=== PATIENT | male | born 1960 | race Caucasian/White ===

== ENCOUNTER 2017-09-18 21:20 | Observation (INO) | payer BC ==
[2017-09-18] MEDS ORDERED: Albuterol/Ipratropium 3.0-0.5 MG/3 ML Neb Soln NEB ONE (21:33)
[2017-09-18] MEDS ORDERED: methylPREDNISolone Sodium Succinate 125 MG/2 ML SDV IVPUSH ONE (21:33)
[2017-09-18] MEDS ORDERED: Albuterol/Ipratropium 3.0-0.5 MG/3 ML Neb Soln ONE (21:34)
[2017-09-18] MEDS ORDERED: Morphine 2 MG/ML Syringe IVPUSH PRN (22:17)
[2017-09-18] MEDS ORDERED: Codeine/guaiFENesin 100-10 MG/5 ML Syrup 5 ML Cup PO PRN (22:17)
[2017-09-18] MEDS ORDERED: Furosemide 20 MG/2 ML VIAL IVPUSH ONE (22:21)
--- NOTE | 2017-09-18 23:29 | ER ---
DATE SEEN: 09/18/2017 TIME SEEN: 2130 hours. REASON FOR VISIT: Cough. HISTORY OF PRESENT ILLNESS: This is a 56-year-old male with COPD. He presents with shortness of breath, difficulty breathing, wheezing, and cough. Symptoms have progressively got worse over the last week, was admitted at the end of last month at [facility], and discharged after a few days. Complains of no fever or chest pain. PAST MEDICAL HISTORY: COPD, CAD, tobacco abuse, quit smoking like a month ago. CURRENT MEDICATIONS: We have no record of his current medications. ALLERGIES: No known allergies. PHYSICAL EXAMINATION: VITAL SIGNS: He is in mild respiratory distress with a normal blood pressure. He is afebrile and oxygenation is 97% on 2 L, but was 79% when he came in without oxygen. ENT: Negative. NECK: Use of accessory muscles noted. CARDIOVASCULAR: Normal. RESPIRATORY: Coarse crepitations, wheezing, rhonchi bilaterally. Poor air exchange. EXTREMITIES: Some mild pedal edema bilaterally. IMPRESSION: Chronic obstructive pulmonary disease exacerbation. PLAN: We will admit for observation, Solu-Medrol NEL, Hector and Brandie. /[id number] TEENA/KIM
[2017-09-18] MEDS ORDERED: methylPREDNISolone Sodium Succinate 125 MG/2 ML SDV ONE (23:54)
[2017-09-19] MEDS: Levofloxacin/Dextrose 5%-Water 500 MG in Premix Bag 1 BAG IV SCH ×2 (00:05→22:41)
[2017-09-19] MEDS: Sodium Chloride 0.9% 10 ML Syringe FLUSH PRN ×4 (00:05→23:41)
[2017-09-19] MEDS ORDERED: Albuterol/Ipratropium 3.0-0.5 MG/3 ML Neb Soln NEB PRN (03:55)
[2017-09-19] MEDS: Albuterol/Ipratropium 3.0-0.5 MG/3 ML Neb Soln NEB SCH ×4 (07:22→21:06)
--- NOTE | 2017-09-19 08:22 | PCM.HP ---
H&P History of Present Illness - General Date of Service: 09/19/17 Admit Problem/Dx: Admission Diagnosis/Problem Admission Diagnosis/Problem COPD with acute lower respiratory infection Source of Information: Patient, Old Records History Limitations: Reports: No Limitations - History of Present Illness Initial Comments - Free Text/Narative: Saman is a 56-year-old male admitted through the emergency room yesterday. He presented with shortness of breath cough wheezing. He has a history of COPD, pulmonary fibrosis and recent pneumonia infection admitted over [facility] in [facility]. He has a history of tobacco abuse and quit around the same time. His cough wheezing and shortness of breath of gotten worse over several days he denies fever chills nausea of any chest pain nausea or vomiting. He's tried albuterol inhalers at home with no real improvement of his symptoms. He has a history of 1 graft cardiac bypass several years ago, atrial fibrillation, sick sinus syndrome status post pacemaker placement, and is on chronic warfarin therapy. Is also survival of non-Hodgkin's lymphoma. Tonight his symptoms have somewhat improved. - Related Data Allergies/Adverse Reactions: Allergies Allergy/AdvReac Type Severity Reaction Status Date / Time No Known Allergies Allergy Verified 09/18/17 21:37 Home Medications: Home Meds Albuterol Sulfate [Ventolin Hfa] 2 puff INH Q4H PRN 09/19/17 [History] Levothyroxine [Sythroid] 1 tab PO DAILY 09/19/17 [History] Lisinopril 1 tab PO DAILY 09/19/17 [History] Metoprolol Succinate 1 tab PO DAILY 09/19/17 [History] Simvastatin [Zocor] 1 tab PO ACDINNER 09/19/17 [History] Warfarin Sodium [Jantoven] 1 tab PO TUFR 09/19/17 [History] Warfarin [Coumadin] 2 tab PO SUMOWETHSA 09/19/17 [History] amLODIPine [Norvasc] 1 tab PO DAILY 09/19/17 [History] buPROPion [Wellbutrin] 1 tab PO BID 09/19/17 [History] Past Medical History HEENT History: Reports: Other (See Below) Other HEENT History: Wears glasses. 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 Endocrine/Metabolic History: Reports: Other (See Below) Other Endocrine/Metabolic History: Takes Thyroid medication. Oncologic (Cancer) History: Reports: Non-Hodgkin's Lymphoma, Thyroid - Infectious Disease History Infectious Disease History: Reports: Chicken Pox, Shingles - Past Surgical History Respiratory Surgical History: Reports: None Social & Family History - Tobacco Use Smoking Status *Q: Former Smoker Years of Tobacco use: 40 Packs/Tins Daily: 1 Used Tobacco, but Quit: No - Caffeine Use Caffeine Use: Reports: Soda - Recreational Drug Use Recreational Drug Use: No H&P Review of Systems - Review of Systems: Review Of Systems: ROS reveals no pertinent complaints other than HPI. Exam - Exam Exam: See Below - Vital Signs Vital Signs: Last Vital Signs Temp 98 F 09/19/17 06:15 Pulse 107 H 09/19/17 07:35 Resp 18 09/19/17 06:15 BP 108/73 09/19/17 06:15 Pulse Ox 92 L 09/19/17 07:25 Weight: 91.716 kg - Exam Quality Assessment: Supplemental Oxygen General: Alert, Oriented, 4 HEENT: PERRLA, Hearing Intact, Mucosa Moist & [place], Nares Patent, Normal Nasal Septum, Posterior Pharynx Clear, Conjunctiva Clear, EOMI, EACs Clear, TMs Clear Neck: Supple, Trachea Midline, 2 Lungs: Decreased Breath Sounds, Rhonchi Cardiovascular: Regular Rate, Regular Rhythm GI/Abdominal Exam: Normal Bowel Sounds, Soft, Non-Tender, No Organomegaly, No Distention, No Abnormal Bruit, No Mass, Pelvis Stable (Male) Exam: Deferred Rectal (Males) Exam: Deferred Back Exam: Normal Inspection, Full Range of Motion, NT Extremities: Normal Inspection, Normal Range of Motion, Non-Tender, No Pedal Edema, Normal Capillary Refill Skin: Warm, Dry, Intact Neurological: Cranial Nerves Intact, Reflexes Equal Bilateral Neuro Extensive - Mental Status: Alert, Oriented x3, Normal Mood/Affect, Normal Cognition Neuro Extensive - Motor, Sensory, Reflexes: CN II-XII Intact, Normal Gait, Normal Reflexes Psychiatric: Alert, Normal Affect, Normal Mood - Patient Data Lab Results Last 24 hrs: Laboratory Results - last 24 hr 09/19/17 09/19/17 Range/Units 06:30 06:30 WBC 16.8 H (4.5-12.0) X10-3/uL RBC 5.04 (4.30-5.75) x10(6)uL Hgb 15.5 (11.5-15.5) g/dL Hct 48.4 (30.0-51.3) % MCV 95.9 (80-96) fL MCH 30.8 (27.7-33.6) pg MCHC 32.1 L (32.2-35.4) g/dL RDW 13.7 (11.5-15.5) % Plt Count 471 H (125-369) X10(3)uL Sodium 139 (135-145) mmol/L Potassium 4.4 (3.5-5.3) mmol/L Chloride 100 (100-110) mmol/L Carbon Dioxide 36 H (21-32) mmol/L BUN 14 (7-18) mg/dL Creatinine 1.0 (0.70-1.30) mg/dL Est Cr Clr Drug Dosing 90.53 mL/min Estimated GFR (MDRD) > 60 (>60) BUN/Creatinine Ratio 14.0 (9-20) Glucose 150 H (80-116) mg/dL Calcium 8.9 (8.6-10.2) mg/dL Result Diagrams: 09/19/17 06:30 09/19/17 06:30 Imaging Impressions Last 24 hrs: cxr-copd EKG INTERPRETATION EKG Date: 09/18/17 Rhythm: Other (paced) *Q Meaningful Use (ADM) - VTE *Q VTE Criteria *Q: - Stroke *Q Stroke Criteria *Q: - AMI *Q AMI Criteria *Q: - Problem List (1) COPD (chronic obstructive pulmonary disease) SNOMED Code(s): 13968192 ICD Code: J44.9 - CHRONIC OBSTRUCTIVE PULMONARY DISEASE, UNSPECIFIED Status : Acute Current Visit: Yes Qualifiers: COPD type: COPD with acute exacerbation Qualified Code(s): J44.1 - Chronic obstructive pulmonary disease with (acute) exacerbation (2) CAD (coronary artery disease) SNOMED Code(s): 82344075 ICD Code: I25.10 - ATHSCL HEART DISEASE OF [place] CORONARY ARTERY W/O ANG PCTRS Status: Acute Current Visit: Yes Qualifiers: Coronary Disease-Associated Artery/Lesion type: bypass graft [place] vs. transplanted heart: [place] heart Associated angina: without angina Qualified Code(s): I25.810 - Atherosclerosis of coronary artery bypass graft(s) without angina pectoris (3) HTN (hypertension) SNOMED Code(s): 54006296 ICD Code: I10 - ESSENTIAL (PRIMARY) HYPERTENSION Status: Acute Current Visit: Yes Qualifiers: Hypertension type: essential hypertension Qualified Code(s): I10 - Essential (primary) hypertension (4) Chronic anticoagulation SNOMED Code(s): 180468536 ICD Code: Z79.01 - ELECTRICAL ACCESSORIES I ASSEMBLER (CURRENT) USE OF ANTICOAGULANTS Status: Chronic Current Visit: Yes (5) Afib SNOMED Code(s): 84584359 ICD Code: I48.91 - UNSPECIFIED ATRIAL FIBRILLATION Status: Chronic Current Visit: Yes Qualifiers: Atrial fibrillation type: chronic Qualified Code(s): I48.2 - Chronic atrial fibrillation (6) H/O aortic valve repair SNOMED Code(s): 807760839368130, 779607464171350 ICD Code: Z98.890 - OTHER SPECIFIED POSTPROCEDURAL STATES Status: Chronic Current Visit: Yes (7) HLD (hyperlipidemia) SNOMED Code(s): 33302225 ICD Code: E78.5 - HYPERLIPIDEMIA, UNSPECIFIED Status: Chronic Current Visit: Yes Qualifiers: Hyperlipidemia type: unspecified Qualified Code(s): E78.5 - Hyperlipidemia , unspecified (8) Hypothyroid SNOMED Code(s): 52474940 ICD Code: E03.9 - HYPOTHYROIDISM, UNSPECIFIED Status: Chronic Current Visit: Yes Qualifiers: Hypothyroidism type: unspecified Qualified Code(s): E03.9 - Hypothyroidism , unspecified (9) History of pacemaker SNOMED Code(s): 097439082 ICD Code: Z95.0 - PRESENCE OF CARDIAC PACEMAKER Status: Chronic Current Visit: Yes (10) H/O non-Hodgkin's lymphoma SNOMED Code(s): 594197807 ICD Code: Z85.72 - PERSONAL HISTORY OF NON-HODGKIN LYMPHOMAS Status: Chronic Current Visit: Yes (11) Dysthymia SNOMED Code(s): 18198396 ICD Code: F34.1 - DYSTHYMIC DISORDER Status: Acute Current Visit: Yes (12) Palliative care status SNOMED Code(s): 443071500 ICD Code: Z51.5 - ENCOUNTER FOR PALLIATIVE CARE Status: Acute Current Visit: Yes (13) H/O tobacco use, presenting hazards to health SNOMED Code(s): 4753002610456 ICD Code: Z87.891 - PERSONAL HISTORY OF NICOTINE DEPENDENCE Status: Acute Current Visit: Yes (14) H/O tobacco use, presenting hazards to health SNOMED Code(s): 8262136822021 ICD Code: Z87.891 - PERSONAL HISTORY OF NICOTINE DEPENDENCE Status: Acute Current Visit: Yes Problem List Initiated/Reviewed/Updated: Yes Orders Last 24hrs: Active Orders 24 hr Category Date Time Status Patient Status [ADT] Routine ADT 09/18/17 22:17 Active Height and Weight [RC] 06 Care 09/18/17 22:17 Active Oxygen Therapy [RC] 00,08,16 Care 09/18/17 22:17 Active RT Incentive Spirometry [RC] Q4HTX Care 09/19/17 08:16 Ordered Vital Signs [RC] 00,04,08,12,16,20 Care 09/18/17 22:17 Active BASIC METABOLIC PANEL,BMP [CHEM] AM Lab 09/20/17 05:11 Ordered CBC W/O DIFF,HEMOGRAM [HEME] AM Lab 09/20/17 05:11 Ordered Albuterol/Ipratropium [DuoNeb 3.0-0.5 MG/3 ML] Med 09/19/17 03:55 Active 3 ml NEB Q4H PRN Albuterol/Ipratropium [DuoNeb 3.0-0.5 MG/3 ML] Med 09/19/17 07:00 Active 3 ml NEB QIDRT Codeine/guaiFENesin [Robitussin AC] Med 09/18/17 22:17 Active 10 ml PO Q4H PRN Levofloxacin/Dextrose 5%-Water [Levaquin in D5W 500 MG/ Med 09/18/17 22:30 Active 100 ML] 500 mg Premix Bag 1 bag IV Q24H Morphine Med 09/18/17 22:17 Active 2 mg IVPUSH Q2H PRN methylPREDNISolone Sod Succ [Solu-MEDROL] Med 09/19/17 09:00 Active 125 mg IVPUSH Q8H Resuscitation Status Routine Resus Stat 09/18/17 22:17 Ordered Medication Orders Albuterol/Ipratropium (Duoneb 3.0-0.5 Mg/3 Ml) 3 ml NEB QIDRT [facility] Last Admin: 09/19/17 07:22 Dose: 3 ml Albuterol/Ipratropium (Duoneb 3.0-0.5 Mg/3 Ml) 3 ml NEB Q4H PRN PRN Reason: Shortness of Breath Guaifenesin/Codeine Phosphate (Robitussin Ac) 10 ml PO Q4H PRN PRN Reason: Cough Levofloxacin/Dextrose 500 mg/ (Premix) 100 mls @ 100 mls/hr IV Q24H [facility] Last Admin: 09/19/17 00:05 Dose: 100 mls/hr Methylprednisolone Sodium Succinate (Solu-Medrol) 125 mg IVPUSH Q8H BRENDA Morphine Sulfate (Morphine) 2 mg IVPUSH Q2H PRN PRN Reason: Pain (severe 7-10) Sodium Chloride (Saline Flush) 10 ml FLUSH ASDIRECTED PRN PRN Reason: Keep Vein Open Last Admin: 09/19/17 00:58 Dose: 10 ml Admin: 09/19/17 00:05 Dose: 10 ml Assessment/Plan Comment:: Reviewed his [facility] from [facility], the CT scan that was done recently and echocardiogram. Mostly consistent with emphysema and Bulae. Chest x-ray yesterday was no suggestive any different. I will continue the Levaquin today along with Solu-Medrol for 1 more day and perhaps discharge home tomorrow. I given 1 dose of Lasix that helped diuresis yesterday and this edema is significantly improved today. I will have him continue with incentive spirometry ,ambulate. Levaquin is for the COPD exacerbation and productive sputum.I did not see evidcence of pneumonia.
[2017-09-19] MEDS: amLODIPine 5 MG Tab PO SCH (09:44)
[2017-09-19] MEDS: Lisinopril 10 MG Tab PO SCH (09:45)
[2017-09-19] MEDS: methylPREDNISolone Sodium Succinate 125 MG/2 ML SDV IVPUSH SCH ×2 (09:46→16:41)
[2017-09-19] MEDS: Levothyroxine 100 MCG Tab PO SCH (09:48)
[2017-09-19] MEDS: Metoprolol Succinate 50 MG Tab.ER PO SCH (09:48)
--- NOTE | 2017-09-19 14:40 | CR ---
INDICATION: Difficulty breathing. CHEST: A portable AP upright view of the chest 09/18/2017, was compared with and , revealing the heart to likely be normal in size and shape. The aorta is calcified in the arch area slightly. Evidence of previous median sternotomy is noted with aortic valve replacement. Bipolar pacemaker leads are unchanged in position. The lungs are hyperaerated with somewhat flattened diaphragm leaves, compatible with severe COPD. A definite active infiltrate or effusion was not identified. IMPRESSION: Findings are compatible with severe COPD - correlate clinically. No definite pneumonia is identified. No CHF is seen. MTDD
[2017-09-19] MEDS ORDERED: Warfarin 4 MG Tab PO SCH (16:00)
[2017-09-19] MEDS ORDERED: Simvastatin 40 MG Tab PO SCH (18:00)
[2017-09-20] MEDS: Sodium Chloride 0.9% 10 ML Syringe FLUSH PRN ×2 (00:56→09:20)
[2017-09-20] MEDS: methylPREDNISolone Sodium Succinate 125 MG/2 ML SDV IVPUSH SCH ×2 (00:56→09:15)
[2017-09-20] MEDS: Levothyroxine 100 MCG Tab PO SCH (05:54)
[2017-09-20] MEDS: Albuterol/Ipratropium 3.0-0.5 MG/3 ML Neb Soln NEB SCH ×3 (07:06→15:04)
--- NOTE | 2017-09-20 08:28 | PCM.PN ---
- General Info Date of Service: 09/20/17 Subjective Update: Patient's cough is much better he still has some wheezing but this is improved by DuoNeb nebulization. He denies fever chest pain neither does he have any vomiting or shortness of breath. Functional Status: Reports: Pain Controlled, Tolerating Diet - Review of Systems General: Reports: No Symptoms. Denies: Fever HEENT: Reports: No Symptoms Pulmonary: Reports: Cough, Wheezing Cardiovascular: Denies: Chest Pain, Dyspnea on Exertion, Orthopnea Gastrointestinal: Reports: No Symptoms - Patient Data Vitals - Most Recent: Last Vital Signs Temp 98.0 F 09/20/17 04:00 Pulse 94 09/20/17 07:20 Resp 18 09/20/17 04:00 BP 115/62 09/20/17 04:00 Pulse Ox 93 L 09/20/17 07:20 Weight - Most Recent: 91.444 kg I&O - Last 24 Hours: Intake & Output 09/19/17 09/20/17 09/20/17 22:59 06:59 14:59 Intake Total 350 950 Output Total 300 1250 Balance 50 -300 Lab Results Last 24 Hours: Laboratory Results - last 24 hr 09/19/17 09/20/17 09/20/17 Range/Units 09:05 06:15 06:15 WBC 33.4 H* (4.5-12.0) X10-3/uL RBC 4.62 (4.30-5.75) x10(6)uL Hgb 14.8 (11.5-15.5) g/dL Hct 44.6 (30.0-51.3) % MCV 96.5 H (80-96) fL MCH 32.1 (27.7-33.6) pg MCHC 33.2 (32.2-35.4) g/dL RDW 13.5 (11.5-15.5) % Plt Count 436 H (125-369) X10(3)uL PT 14.7 H (8.7-11.1) INR 1.45 H (0.89-1.13) Sodium 138 (135-145) mmol/L Potassium 4.7 (3.5-5.3) mmol/L Chloride 101 (100-110) mmol/L Carbon Dioxide 32 (21-32) mmol/L BUN 25 H D (7-18) mg/dL Creatinine 1.0 (0.70-1.30) mg/dL Est Cr Clr Drug Dosing 90.53 mL/min Estimated GFR (MDRD) > 60 (>60) BUN/Creatinine Ratio 25.0 H (9-20) Glucose 131 H (80-116) mg/dL Calcium 8.9 (8.6-10.2) mg/dL 09/20/17 Range/Units 06:15 WBC (4.5-12.0) X10-3/uL RBC (4.30-5.75) x10(6)uL Hgb (11.5-15.5) g/dL Hct (30.0-51.3) % MCV (80-96) fL MCH (27.7-33.6) pg MCHC (32.2-35.4) g/dL RDW (11.5-15.5) % Plt Count (125-369) X10(3)uL PT 13.3 H (8.7-11.1) INR 1.31 H (0.89-1.13) Sodium (135-145) mmol/L Potassium (3.5-5.3) mmol/L Chloride (100-110) mmol/L Carbon Dioxide (21-32) mmol/L BUN (7-18) mg/dL Creatinine (0.70-1.30) mg/dL Est Cr Clr Drug Dosing mL/min Estimated GFR (MDRD) (>60) BUN/Creatinine Ratio (9-20) Glucose (80-116) mg/dL Calcium (8.6-10.2) mg/dL Med Orders - Current: Current Medications Albuterol/Ipratropium (Duoneb 3.0-0.5 Mg/3 Ml) 3 ml NEB QIDRT [facility] Last Admin: 09/20/17 07:06 Dose: 3 ml Albuterol/Ipratropium (Duoneb 3.0-0.5 Mg/3 Ml) 3 ml NEB Q4H PRN PRN Reason: Shortness of Breath Amlodipine Besylate (Norvasc) 5 mg PO DAILY [facility] Last Admin: 09/19/17 09:44 Dose: 5 mg Bupropion HCl (Wellbutrin) 75 mg PO BID [facility] Last Admin: 09/19/17 21:06 Dose: 75 mg Guaifenesin/Codeine Phosphate (Robitussin Ac) 10 ml PO Q4H PRN PRN Reason: Cough Levofloxacin/Dextrose 500 mg/ (Premix) 100 mls @ 100 mls/hr IV Q24H [facility] Last Admin: 09/19/17 22:41 Dose: 100 mls/hr Levothyroxine Sodium (Synthroid) 100 mcg PO DAILY@0600 [facility] Last Admin: 09/20/17 05:54 Dose: 100 mcg Lisinopril (Prinivil) 10 mg PO DAILY [facility] Last Admin: 09/19/17 09:45 Dose: 10 mg Methylprednisolone Sodium Succinate (Solu-Medrol) 125 mg IVPUSH Q8H [facility] Last Admin: 09/20/17 00:56 Dose: 125 mg Metoprolol Succinate (Toprol Xl) 50 mg PO DAILY [facility] Last Admin: 09/19/17 09:48 Dose: 50 mg Morphine Sulfate (Morphine) 2 mg IVPUSH Q2H PRN PRN Reason: Pain (severe 7-10) Simvastatin (Zocor) 40 mg PO 1800 [facility] Last Admin: 09/19/17 18:18 Dose: 40 mg Sodium Chloride (Saline Flush) 10 ml FLUSH ASDIRECTED PRN PRN Reason: Keep Vein Open Last Admin: 09/20/17 00:56 Dose: 10 ml Warfarin Sodium (Coumadin) 4 mg PO TUFR [facility] Last Admin: 09/19/17 16:39 Dose: 4 mg Warfarin Sodium (Coumadin) 8 mg PO SUMOWETHSA [facility] Discontinued Medications Albuterol/Ipratropium (Duoneb 3.0-0.5 Mg/3 Ml) 3 ml NEB ONETIME ONE Stop: 09/18/17 21:34 Last Admin: 09/18/17 21:35 Dose: 3 ml Albuterol/Ipratropium (Duoneb 3.0-0.5 Mg/3 Ml) Confirm Administered Dose 3 ml .ROUTE .STK-MED ONE Stop: 09/18/17 21:35 Last Admin: 09/18/17 23:50 Dose: Not Given Furosemide (Lasix) 20 mg IVPUSH ONETIME ONE Stop: 09/18/17 22:22 Last Admin: 09/19/17 00:01 Dose: 20 mg Methylprednisolone Sodium Succinate (Solu-Medrol) 125 mg IVPUSH ONETIME ONE Stop: 09/18/17 21:34 Last Admin: 09/18/17 23:58 Dose: 125 mg Methylprednisolone Sodium Succinate (Solu-Medrol) Confirm Administered Dose 125 mg .ROUTE .STK-MED ONE Stop: 09/18/17 23:55 Last Admin: 09/18/17 23:59 Dose: Not Given - Exam Quality Assessment: Supplemental Oxygen General: Alert, Oriented, Cooperative HEENT: Pupils Equal Lungs: Rhonchi, Wheezing Cardiovascular: Regular Rate GI/Abdominal Exam: Normal Bowel Sounds - Problem List & Annotations (1) COPD (chronic obstructive pulmonary disease) SNOMED Code(s): 40887709 Code(s): J44.9 - CHRONIC OBSTRUCTIVE PULMONARY DISEASE, UNSPECIFIED Status : Acute Current Visit: Yes Qualifiers: COPD type: COPD with acute exacerbation Qualified Code(s): J44.1 - Chronic obstructive pulmonary disease with (acute) exacerbation (2) CAD (coronary artery disease) SNOMED Code(s): 00725640 Code(s): I25.10 - ATHSCL HEART DISEASE OF [place] CORONARY ARTERY W/O ANG PCTRS Status: Acute Current Visit: Yes Qualifiers: Coronary Disease-Associated Artery/Lesion type: bypass graft [place] vs. transplanted heart: [place] heart Associated angina: without angina Qualified Code(s): I25.810 - Atherosclerosis of coronary artery bypass graft(s) without angina pectoris (3) HTN (hypertension) SNOMED Code(s): 75893680 Code(s): I10 - ESSENTIAL (PRIMARY) HYPERTENSION Status: Acute Current Visit: Yes Qualifiers: Hypertension type: essential hypertension Qualified Code(s): I10 - Essential (primary) hypertension (4) Chronic anticoagulation SNOMED Code(s): 583868696 Code(s): Z79.01 - HALF-WAY (CURRENT) USE OF ANTICOAGULANTS Status: Chronic Current Visit: Yes (5) Afib SNOMED Code(s): 12492970 Code(s): I48.91 - UNSPECIFIED ATRIAL FIBRILLATION Status: Chronic Current Visit: Yes Qualifiers: Atrial fibrillation type: chronic Qualified Code(s): I48.2 - Chronic atrial fibrillation (6) H/O aortic valve repair SNOMED Code(s): 942778738950668, 130703574879894 Code(s): Z98.890 - OTHER SPECIFIED POSTPROCEDURAL STATES Status: Chronic Current Visit: Yes (7) HLD (hyperlipidemia) SNOMED Code(s): 68999863 Code(s): E78.5 - HYPERLIPIDEMIA, UNSPECIFIED Status: Chronic Current Visit: Yes Qualifiers: Hyperlipidemia type: unspecified Qualified Code(s): E78.5 - Hyperlipidemia , unspecified (8) Hypothyroid SNOMED Code(s): 98273576 Code(s): E03.9 - HYPOTHYROIDISM, UNSPECIFIED Status: Chronic Current Visit: Yes Qualifiers: Hypothyroidism type: unspecified Qualified Code(s): E03.9 - Hypothyroidism , unspecified (9) History of pacemaker SNOMED Code(s): 348574415 Code(s): Z95.0 - PRESENCE OF CARDIAC PACEMAKER Status: Chronic Current Visit: Yes (10) H/O non-Hodgkin's lymphoma SNOMED Code(s): 769378680 Code(s): Z85.72 - PERSONAL HISTORY OF NON-HODGKIN LYMPHOMAS Status: Chronic Current Visit: Yes (11) Dysthymia SNOMED Code(s): 12629076 Code(s): F34.1 - DYSTHYMIC DISORDER Status: Acute Current Visit: Yes (12) Palliative care status SNOMED Code(s): 303643551 Code(s): Z51.5 - ENCOUNTER FOR PALLIATIVE CARE Status: Acute Current Visit: Yes (13) H/O tobacco use, presenting hazards to health SNOMED Code(s): 2676024198972 Code(s): Z87.891 - PERSONAL HISTORY OF NICOTINE DEPENDENCE Status: Acute Current Visit: Yes (14) H/O tobacco use, presenting hazards to health SNOMED Code(s): 4846869267852 Code(s): Z87.891 - PERSONAL HISTORY OF NICOTINE DEPENDENCE Status: Acute Current Visit: Yes - Problem List Review Problem List Initiated/Reviewed/Updated: Yes - My Orders Last 24 Hours: My Active Orders 09/19/17 08:16 RT Incentive Spirometry [RC] Q4HWA 09/19/17 09:00 Levothyroxine [Synthroid] 100 mcg PO DAILY@0600 Lisinopril [Prinivil] 10 mg PO DAILY Metoprolol Succinate [Toprol XL] 50 mg PO DAILY amLODIPine [Norvasc] 5 mg PO DAILY methylPREDNISolone Sod Succ [Solu-MEDROL] 125 mg IVPUSH Q8H 09/19/17 09:30 buPROPion [Wellbutrin] 75 mg PO BID 09/19/17 16:00 Warfarin [Coumadin] 4 mg PO TUFR 09/19/17 18:00 Simvastatin [Zocor] 40 mg PO 1800 09/20/17 09:30 Umeclidinium Brm/Vilanterol Tr [Anoro Ellipta 62.5-25 MCG] 62.5 mcg IH DAILY 09/20/17 16:00 Warfarin [Coumadin] 8 mg PO SUMOWETHSA - Plan Plan:: Patient ready to go home today. Cough and wheezing controlled. I'll send him home DuoNeb and a course of prednisone to finish 5 days. I have stopped the antibiotics. I invited him to see his physician on Monday return to the ED if any worsening symptoms. I congratulated him for quitting smoking.
[2017-09-20] MEDS: amLODIPine 5 MG Tab PO SCH (09:12)
[2017-09-20] MEDS: Lisinopril 10 MG Tab PO SCH (09:15)
[2017-09-20] MEDS: Metoprolol Succinate 50 MG Tab.ER PO SCH (09:16)
[2017-09-20] MEDS ORDERED: Umeclidinium Brm/Vilanterol Tr 62.5-25 MCG 30 Puff Inhaler IH SCH (09:30)
[2017-09-20] MEDS ORDERED: Warfarin 4 MG Tab PO SCH (16:00)
== END 2017-09-20 16:02 | disposition home or self-care (01) ==
LOC: FB.ED 21:20 → FB.MS 22:16
PROVIDERS: ADMIT Family Medicine; ATTEND Family Medicine
DX: J44.1 Chronic obstructive pulmonary disease with (acute) exacerbation (principal); I25.810 Atherosclerosis of coronary artery bypass graft(s) without angina pectoris; I10 Essential (primary) hypertension; I48.2 Chronic atrial fibrillation; E78.5 Hyperlipidemia, unspecified; E03.9 Hypothyroidism, unspecified; F34.1 Dysthymic disorder; Z95.0 Presence of cardiac pacemaker; Z79.01 Long term (current) use of anticoagulants; Z85.72 Personal history of non-Hodgkin lymphomas; Z98.890 Other specified postprocedural states; Z87.891 Personal history of nicotine dependence; Z51.5 Encounter for palliative care; Z95.2 Presence of prosthetic heart valve
CPT/HCPCS: 36415; 71010; 80048; 83880; 84484; 85025; 85027; 85610; 93005; 94150; 94640; 96365; 96366; 96375; 96376; 99285; A9270; G0378; J1940; J1956; J2930; J7050; J7620

== ENCOUNTER 2018-02-10 20:45 | Observation (INO) | payer BC ==
[2018-02-10] MEDS ORDERED: methylPREDNISolone Sodium Succinate 125 MG/2 ML SDV IVPUSH ONE (21:06)
[2018-02-10] MEDS ORDERED: Albuterol/Ipratropium 3.0-0.5 MG/3 ML Neb Soln NEB ONE (21:06)
[2018-02-10] MEDS ORDERED: Morphine 4 MG/ML Syringe IVPUSH ONE (22:28)
[2018-02-10] MEDS ORDERED: LORazepam 0.5 MG Tab PO PRN (22:33)
[2018-02-10] MEDS ORDERED: Codeine/guaiFENesin 100-10 MG/5 ML Syrup 5 ML Cup PO PRN (22:33)
[2018-02-10] MEDS ORDERED: Levofloxacin/Dextrose 5%-Water 500 MG in Premix Bag 1 BAG IV SCH (22:45)
--- NOTE | 2018-02-10 22:47 | ER ---
DATE SEEN: 02/10/2018 TIME SEEN: 2145 hours. CHIEF COMPLAINT: Cough. HISTORY OF PRESENT ILLNESS: This is a 57-year-old male with a cough since yesterday. Cough is productive of yellow sputum, associated with wheezing, tightness, which does not seem to improve with albuterol nebulizer. He has a history of COPD that is oxygen dependent at night. He also has a history of atrial fibrillation, on chronic anticoagulation; CAD; hypertension; and dysthymia. REVIEW OF SYSTEMS: No fever, headaches, or vomiting. No chest pain. MEDICATIONS: Reviewed. ALLERGIES: None. PHYSICAL EXAMINATION: GENERAL: He has mild respiratory distress. VITAL SIGNS: He is afebrile, oxygenation 89% on room air, 95% on 1 L. EARS, NOSE AND THROAT: Negative. NECK: No thyromegaly. CHEST: Diminished breath sounds markedly with occasional rhonchi posteriorly. CARDIOVASCULAR: Irregular heart rate. ABDOMEN: Soft. EXTREMITIES: No edema. LABORATORY DATA: White cell count 17.2000. Troponin less than 0.017. Chest x- ray, no acute process. EKG normal. IMPRESSION: Acute chronic obstructive pulmonary disease exacerbation. PLAN: DuoNeb x1, Solu-Medrol 125 mg once. The patient will be discharged home on prednisone 10 mg b.i.d. Advised to see PCP on Monday. Return to the ED with any worsening symptoms. /[id number] TEENA/KIM
[2018-02-10] MEDS ORDERED: Morphine 10 MG/ML Syringe IVPUSH ONE (22:51)
[2018-02-11] MEDS ORDERED: methylPREDNISolone Sodium Succinate 125 MG/2 ML SDV IVPUSH SCH (06:00)
[2018-02-11] MEDS: Sodium Chloride 0.9% 10 ML Syringe FLUSH PRN ×2 (06:09→08:39)
[2018-02-11] MEDS: Albuterol/Ipratropium 3.0-0.5 MG/3 ML Neb Soln NEB SCH ×2 (07:51→11:19)
[2018-02-11] MEDS ORDERED: Levofloxacin 500 MG Tab PO SCH (21:00)
[2018-02-12] MEDS ORDERED: predniSONE 20 MG Tab PO SCH (08:00)
--- NOTE | 2018-02-12 10:18 | HP ---
ADMISSION DATE: 02/10/2018 HISTORY OF PRESENT ILLNESS: Saman Ruiz is a 57-year-old gentleman admitted with increasing respiratory distress. Cough, cold, moderate sputum, inhalation therapy with little response, was admitted through the ER. He has been given intravenous methylprednisolone and a dose of levofloxacin. 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 He has done well in the interim. Surgery was in 2009. SOCIAL HISTORY: Quit smoking a year ago. No alcohol consumption. No illicit drug use. MEDICATIONS: Daily medications include: 1. DuoNeb q.i.d. p.r.n. 2. Amlodipine 5 mg one p.o. daily, blood pressure. 3. Budesonide/Pulmicort 2 mL q.4 hours. 4. BuSpar 5 mg one p.o. b.i.d., mood stabilizer. 5. Furosemide 40 mg one p.o. b.i.d., heart. 6. Levothyroxine 100 mcg one p.o. daily, hypothyroidism. 7. Lisinopril 10 mg one p.o. daily, blood pressure/heart. 8. Metoprolol 150 mg p.o. daily, heart rate control. 9. Sertraline 50 mg one p.o. daily, mood stabilizer. 10.Zocor 40 mg daily, hyperlipidemia. 11.Warfarin for mechanical aortic valve. ALLERGIES: No medication, environmental, or latex allergies. PAST MEDICAL HISTORY: Significant for previous coronary bypass surgery, aortic valve replacement, and pacemaker placement postsurgical for heart block in about 2009. He has also had wisdom tooth extraction. Chronic illnesses include mood disorder, hypertension, hypothyroidism, and hyperlipidemia. SOCIAL HISTORY: , 67, 4 children, 1 daughter, 3 sons. Works at [employer]. 30+ pack-year history, resolved, 2017. Nil alcohol consumption. No illicit drug use. FAMILY HISTORY: Mom of "cancer, ovarian", age 85, dad 90. One brother, one sister, both older, in good health. No diabetes or early heart disease or inheritable cancers. REVIEW OF SYSTEMS: CONSTITUTIONAL: Please see HPI. Sees well. Hears well. CHEST: Breathing has been a bit compromised. Denies chest pain. ABDOMEN: Bowels have been fine, no blood in stool. Voiding without difficulty. No blood in urine. SKIN: No new lesions, eruptions, or moles. ENDOCRINE: No excessive thirst, urination. ALLERGIC: No chronic cough, wheeze, or congestion. PSYCHIATRIC: Mood stable. OBJECTIVE: VITAL SIGNS: 96.1 kg, pulse 101, blood pressure 119/83, 20 is the respiration, and O2 saturation 94%. GENERAL: The patient was seen sitting up in the room, conversation is appropriate. HEENT: Reveal funduscopic benign. Bright TMs. Clear nasal discharge. Mouth and oropharynx clear. Fair dentition. NECK: Benign. Thyroid small. No JVD. No carotid bruits. CHEST: Clear in all lung swanson. No adventitious sounds. HEART: On auscultation, no ectopy or significant murmur. Valvular click appreciated. BREASTS: Normal male breasts. Mild gynecomastia. NECK: Excellent, no adenopathy. ABDOMEN: Benign. Sternotomy scar well healed. Drain sites well healed. No hepatomegaly. AND RECTAL: Deferred. EXTREMITIES: Well perfused. SKIN: Benign nevi. LABORATORY STUDIES: White count 17,200, hemoglobin 14.8, hematocrit 44.7, electrolytes unremarkable. Random glucose 120. Troponin was negative. BNP 511. A chest x-ray, AP, nondiagnostic. No complicating pneumonia is present. ASSESSMENT: A 57-year-old, male, presents with complicated respiratory status, chronic obstructive pulmonary disease, asthma, previous heart surgery, with troublesome cough, low-grade fever, mild respiratory distress. Has been given IV Levaquin, IV Solu-Medrol. Complementary care and well being. We will observe overnight in terms of clinical response. Discharge likely after short-term stay. /[id number] /KIM Cc: [facility].
--- NOTE | 2018-02-12 10:18 | PN ---
DATE SEEN: 02/11/2018 SUBJECTIVE: Mr. Ruiz was admitted yesterday with mild respiratory distress with complicated sputum, suspicion for fever. He was given intravenous Solu-Medrol and levofloxacin, much better today. Denies fever, chills, or sweats. Shortness of breath is improved, up and ambulating. PHYSICAL EXAMINATION: VITAL SIGNS: Stable and documented. 36.5, heart rate 106. HEENT: Speech was fluent. NECK: Benign. Thyroid small. CHEST: Better air exchange but some diffuse wheezing. HEART: Regular without ectopy or murmur, click noted. ABDOMEN: Benign. IMPRESSION: 1. Acute exacerbation of chronic obstructive pulmonary disease. 2. Asthma with respiratory infection. PLAN: Seems well. Short burst of steroids post. Upon discharge, antibiotics and therapy as indicated, follow up in one week's time, Lisa Villalpando, [facility]. /[id number] ADEEL/KIM
--- NOTE | 2018-02-12 15:19 | CR ---
INDICATION: Cough. CHEST: PA and lateral views of the chest were obtained 02/10/2018 and compared with 09/18/2017 and 12/28/2012, again revealing the heart to be normal in size and shape with bipolar pacemaker leads unchanged in position in this post mediastinotomy patient with aortic valve replacement. Calcification is noted in the arch of the aorta, as previously. Findings compatible with COPD are again noted and may be somewhat exacerbated and/or progressive with increased flattening and with prominent AP diameter and hyperaeration present. Interstitial markings are somewhat heavy, similar to the previous examination or possibly slightly increased, raising question of interstitial fibrosis, although active interstitial pneumonia could be present. No consolidating pneumonia or effusion was identified. Minimal compression fracture is noted in the upper middle thoracic spine with compression at the inferior end plate and anteriorly, perhaps very slightly increased compared with the previous study of 2013. This should be correlated clinically as to its age otherwise. There is suggestion of an additional interval compression fracture at an upper thoracic level with anterior and superior end plate compression of mild to moderate degree. IMPRESSION: 1. Progressive and/or exacerbated COPD. 2. Post aortic valve replacement with stable bipolar pacemaker leads also noted. 3. Osteoporotic compression at an upper middle thoracic level, which is slightly new compared with previous study of 2012. Otherwise, the age is indeterminate. Also, in the upper thoracic spine, there is appearance of a new osteoporotic compression fracture of moderate degree of the superior end plate and anteriorly. This also should be correlated clinically. Nuclear bone imaging may be helpful to gauge the age of these fractures, as felt to be clinically necessary. 4. Interstitial markings are somewhat heavy, which may be on the basis of fibrosis, although interstitial pneumonia cannot be excluded. MTDD
== END 2018-02-11 13:11 | disposition home or self-care (01) ==
LOC: FB.ED 20:45 → FB.MS 22:31
PROVIDERS: ADMIT Family Medicine; ATTEND Family Medicine
DX: J44.1 Chronic obstructive pulmonary disease with (acute) exacerbation (principal); E03.9 Hypothyroidism, unspecified; F39 Unspecified mood [affective] disorder; I10 Essential (primary) hypertension; E78.5 Hyperlipidemia, unspecified; I48.91 Unspecified atrial fibrillation; Z95.1 Presence of aortocoronary bypass graft; Z95.0 Presence of cardiac pacemaker; Z87.891 Personal history of nicotine dependence; Z79.01 Long term (current) use of anticoagulants; Z95.4 Presence of other heart-valve replacement; Z91.040 Latex allergy status; Z99.81 Dependence on supplemental oxygen
CPT/HCPCS: 36415; 71046; 80053; 83880; 84484; 85025; 93005; 94640; 96365; 96375; 96376; 99285; G0378; J1956; J2270; J2930; J7050; J7620

== ENCOUNTER 2019-10-18 20:40 | Emergency (ER) | payer BC ==
--- NOTE | 2019-10-18 21:03 | EDM.PDOC ---
ED HPI GENERAL MEDICAL PROBLEM - General Stated Complaint: COMPRESSION FRACTURE Time Seen by Provider: 10/18/19 21:02 Source of Information: Reports: Patient History Limitations: Reports: No Limitations - History of Present Illness INITIAL COMMENTS - FREE TEXT/NARRATIVE: 59-year-old male who reports on 10/10/2019 he sneezed and jerked hard and had pain in his mid back. That pain has progressively worsened with time and he has been seen in the clinic at [facility]. The first time was on 10/15/2019 and a thoracic spine x-ray did not show any acute abnormality. The second time was today and he was sent for a CT scan of his thoracic spine which showed a mild compression fracture of T6 and unchanged fractures of T8 and T11 from previous that underwent kyphoplasty. The pain in his back is a 10/10. It is a sharp pain but there is a spasm pain associated with it enough on a comfortable position to relax. He has taken hydrocodone for his pain without relief. No nausea or vomiting. He did have his INR checked on 10/10/2019 and it was 1.7. No abdominal pain. No nausea or vomiting. No other trauma. No arm or leg weakness. No numbness in his legs. He has been urinating normally. He is chronically on oxygen at 2-3 L/m via nasal cannula but he reports that his breathing has not changed and he feels that his breathing is normal for him. There are no other associated signs or symptoms. There are no other modifying factors. Onset: Other (10/10/2019) Duration: Getting Worse Location: Reports: Back Quality: Reports: Sharp, Other (Spasm-like) Improves with: Reports: None Worsens with: Reports: Other (Palpation), Movement Associated Symptoms: Reports: No Other Symptoms Treatments GAMB CUTTER: Reports: Other Medication(s) (Hydrocodone 5/325) - Related Data Allergies Allergy/AdvReac Type Severity Reaction Status Date / Time No Known Allergies Allergy Verified 10/18/19 21:18 Home Meds: Home Meds Levothyroxine [Synthroid] 100 mcg PO DAILY 09/19/17 [History] Lisinopril 10 mg PO DAILY 09/19/17 [History] Metoprolol Succinate 100 mg PO DAILY 09/19/17 [History] Simvastatin [Zocor] 40 mg PO ACDINNER 09/19/17 [History] Warfarin Sodium [Jantoven] 4 mg PO DAILY 09/19/17 [History] amLODIPine [Norvasc] 5 mg PO DAILY 09/19/17 [History] Albuterol/Ipratropium [DuoNeb 3.0-0.5 MG/3 ML] 3 ml NEB Q4H PRN #60 neb [Rx] Budesonide [Pulmicort] 0.5 mg IH Q4HR PRN 02/10/18 [History] Furosemide 40 mg PO BID 02/10/18 [History] Sertraline [Zoloft] 50 mg PO DAILY 02/10/18 [History] busPIRone [Buspar] 5 mg PO BID 02/10/18 [History] Cyclobenzaprine [Flexeril] 10 mg PO TID 10/18/19 [History] Hydrocodone/Acetaminophen [Hydrocodon-Acetaminophen 5-325] 1 tab PO Q4HR PRN [History] diazePAM [Valium] 5 mg PO QID PRN #16 tab 10/18/19 [Rx] Past Medical History HEENT History: Reports: Impaired Vision, Other (See Below) Other HEENT History: Wears glasses. 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 Neurological History: Reports: Other (See Below) Other Neuro History: Fractured vertebra. Psychiatric History: Reports: Anxiety, Depression Endocrine/Metabolic History: Reports: Hypothyroidism Hematologic History: Reports: Anticoagulation Therapy Oncologic (Cancer) History: Reports: Non-Hodgkin's Lymphoma, Thyroid - Infectious Disease History Infectious Disease History: Reports: Chicken Pox, Mumps - Past Surgical History Cardiovascular Surgical History: Reports: Valve Replacement (Aortic valve) Musculoskeletal Surgical History: Reports: Other (See Below) Other Musculoskeletal Surgeries/Procedures:: States has hx of broken wrist when younger. Social & Family History - Tobacco Use Smoking Status *Q: Former Smoker (States that he has not smoked for 2 weeks. He was a heavy smoker prior to this.) - Caffeine Use Caffeine Use: Reports: Soda ED ROS GENERAL - Review of Systems Review Of Systems: See Below Constitutional: Reports: Malaise, Weakness HEENT: Reports: No Symptoms Respiratory: Reports: No Symptoms Cardiovascular: Reports: No Symptoms Endocrine: Reports: No Symptoms GI/Abdominal: Reports: No Symptoms : Reports: No Symptoms Musculoskeletal: Reports: No Symptoms Skin: Reports: No Symptoms Neurological: Reports: No Symptoms Hematologic/Lymphatic: Reports: Other (Chronically anticoagulated on Coumadin.) Immunologic: Reports: No Symptoms ED EXAM,LOWER BACK PAIN/INJURY - Physical Exam Exam: See Below Exam Limited By: No Limitations General Appearance: Alert, WD/WN, Moderate Distress (Secondary to pain. No respiratory distress.) Eye Exam: Bilateral Eye: EOMI, Normal Inspection Ears: Normal External Exam Nose: Normal Inspection Throat/Mouth: Normal Inspection Head: Atraumatic, Sinus Tenderness Neck: Normal Inspection, Supple, Non-Tender Respiratory/Chest: No Respiratory Distress, No Accessory Muscle Use, Chest Non- Tender, Rhonchi (Scattered bilaterally), Wheezing (Scattered bilaterally), Other (No increased work of breathing). No: Accessory Muscle Use Cardiovascular: Normal Peripheral Pulses, Regular Rate, Rhythm, No JVD, Irregularly Irregular GI/Abdominal: Normal Bowel Sounds, Soft, Tender (Mild). No: Rigid, Rebound Back Exam: Decreased Range of Motion, Paraspinal Tenderness (And muscle spasm), Vertebral Tenderness (Along the T6 area) Extremities: Normal Inspection, Normal Range of Motion, Non-Tender, No Pedal Edema Neurological: Alert, Normal Mood/Affect, Normal Dorsiflexion, CN II-XII Intact, Normal Plantar Flexion Psychiatric: Normal Affect, Other Skin Exam: Warm, Dry, Intact, Normal Color, No Rash Course - Vital Signs Last Recorded V/S: Last Vital Signs Temp 36.2 C 10/18/19 20:45 Pulse 68 10/18/19 23:39 Resp 18 10/18/19 23:39 BP 141/111 H 10/18/19 20:45 Pulse Ox 97 10/18/19 23:39 - Orders/Labs/Meds Labs: Laboratory Tests 10/18/19 Range/Units 22:00 PT 82.3 H* (8.7-11.1) INR 8.66 H* (0.89-1.13) Meds: Medications Discontinued Medications Generic Name Dose Route Start Last Admin Trade Name Freq PRN Reason Stop Dose Admin Diazepam 5 mg 10/18/19 21:38 10/18/19 21:49 Valium. PO 10/18/19 21:39 5 mg ONETIME ONE Administration Hydromorphone HCl 2 mg 10/18/19 21:38 10/18/19 21:48 Dilaudid IM 10/18/19 21:39 2 mg ONETIME ONE Administration Ondansetron HCl 4 mg 10/18/19 21:38 10/18/19 21:49 Zofran Odt PO 10/18/19 21:39 4 mg ONETIME ONE Administration - Radiology Interpretation Free Text/Narrative:: A report of the patient's CT scan of his thoracic spine performed today at [facility] showed no change in T8 and T11 vertebra status post kyphoplasty and a new mild T6 compression fracture. - Re-Assessments/Exams Free Text/Narrative Re-Assessment/Exam: 10/18/19 23:00: The patient's pain is improved. He seems to be resting comfortably and even dosing. His INR is 8.66. I will have the patient hold his Coumadin tomorrow and Monday is to follow-up with the Coumadin clinic nurse on Monday prior to taking his Coumadin and he will also need to have a repeat INR at that time. In addition I will a prescription for Valium that he can use it on that he has for his pain. He will also need to follow-up with his doctor at [facility] about his thoracic compression fracture and continuing back pain. Departure - Departure Time of Disposition: 23:15 Disposition: Home, Self-Care 01 Condition: Good (Improved) Clinical Impression: Supratherapeutic INR Compression fracture of T6 vertebra Qualifiers: Encounter type: initial encounter Qualified Code(s): S22.050A - Wedge compression fracture of T5-T6 vertebra, initial encounter for closed fracture Thoracic back pain Qualifiers: Chronicity: acute Back pain laterality: midline Qualified Code(s): M54.6 - Pain in thoracic spine - Discharge Information Prescriptions: diazePAM [Valium] 5 mg PO QID PRN #16 tab PRN Reason: Muscle spasm Instructions: Vertebral Fracture, [id number] Referrals: Lisa Villalpando [employer] [Primary Care Provider] - Forms: ED Department Discharge Additional Instructions: You do have a fracture of your 6th thoracic vertebra. It was mild on the CT scan that was performed at [facility] today. You appear to have quite a bit of muscle spasm associated with pain. You should take the hydrocodone tablets every 6 hours as needed for moderate to severe pain. I have also given you a prescription for Valium (muscle relaxer) that you can take for your muscle spasm and this may help pain. Be sure to take deep breaths to try to help keep your lungs expanded. Your INR was also 8.66. This is too high. It should be between 2.5 and 3.5. Do not take your Coumadin again until he can talk to the Coumadin clinic nurse on Monday and have your INR rechecked and they will instruct you on further dosing of your Coumadin. Back to the emergency department for trouble breathing, high fever, abdominal pain, leg weakness or numbness or any other concerning sign or symptom. Sepsis Event Note - Focused Exam Vital Signs: Vital Signs Temp Pulse Resp BP Pulse Ox 10/18/19 23:39 68 18 97 10/18/19 20:45 36.2 C 71 18 141/111 H 97 Date Exam was Performed: 10/19/19 Time Exam was Performed: 04:10
[2019-10-18] MEDS ORDERED: HYDROmorphone 2 MG/ML SDV IM ONE (21:38)
[2019-10-18] MEDS ORDERED: Ondansetron 4 MG Tab.DIS PO ONE (21:38)
[2019-10-18] MEDS ORDERED: Diazepam 5 MG Tab PO ONE (21:38)
== END 2019-10-18 23:40 | disposition home or self-care (01) ==
LOC: FB.ED 20:40
DX: S22.050A Wedge compression fracture of T5-T6 vertebra, initial encounter for closed fracture (principal); R79.1 Abnormal coagulation profile; F41.9 Anxiety disorder, unspecified; E03.9 Hypothyroidism, unspecified; J44.9 Chronic obstructive pulmonary disease, unspecified; Z79.01 Long term (current) use of anticoagulants; Z79.899 Other long term (current) drug therapy; Z87.891 Personal history of nicotine dependence; Z95.0 Presence of cardiac pacemaker; Z95.2 Presence of prosthetic heart valve; X58.XXXA Exposure to other specified factors, initial encounter
CPT/HCPCS: 36415; 85610; 96372; 99283; A9270; J1170

== ENCOUNTER 2019-10-19 05:58 | Emergency (ER) | payer BC ==
[2019-10-19] MEDS ORDERED: Naloxone 0.4 MG/ML SDV ONE (06:05)
[2019-10-19] MEDS ORDERED: Sodium Chloride 0.9% 10 ML Syringe FLUSH PRN (06:15)
[2019-10-19] MEDS ORDERED: Albuterol 0.083% 2.5 MG/3 ML Neb Soln NEB ONE (06:19)
[2019-10-19] MEDS ORDERED: Albuterol/Ipratropium 3.0-0.5 MG/3 ML Neb Soln NEB ONE (06:19)
--- NOTE | 2019-10-19 06:29 | EDM.PDOC ---
ED HPI GENERAL MEDICAL PROBLEM - General Chief Complaint: Respiratory Problem Stated Complaint: RESPIRATORY Time Seen by Provider: 10/19/19 06:08 Source of Information: Reports: Patient History Limitations: Reports: No Limitations - History of Present Illness INITIAL COMMENTS - FREE TEXT/NARRATIVE: A 9-year-old male who was just in the emergency department less than 8 hours ago secondary to moderate to severe back pain related to a new T6 compression fracture. He had quite a bit of muscle spasm associated with this and he was given pain medication and Valium with good effect. He had no respiratory difficulty at time and was here basically for his back pain that was under control with hydrocodone at home. The patient's daughter reports that he was fine when he got home and was better controlled, he drank some water and then went to bed. The daughter awoke at approximately 3 AM secondary to the patient coughing and gagging. She found him sitting on the edge of the bed with about his mouth and on his clothing that was somewhat brown in color and he seemed to be somewhat out of it. He was breathing okay at this time but did have some gurgling and was clearing his throat. She was able to get him to the chair in the den and over the next 2 hours he continued to have more gurgling respirations and continued to be somnolent and somewhat confused, addressing his daughter as his sister. He also begin to gag and appeared ready to vomit again and his daughter called 911. Elvie arrived, they found him to be somewhat cyanotic in color, confused and minimally verbally responsive and with O2 saturation in the 70's on 3 L/m via nasal cannula oxygen. They placed him on nonrebreather and transported him to the emergency department. He arrives here, he is awake and responsive but not verbally responsive and he does not respond appropriately to questions. He is unable to give any other history but when he coughs he does appear to be in some pain. He is, however, unable to quantitate or qualitate this pain. There are no other associated signs or symptoms. There are no other modifying factors. Onset: Today (3 AM) Duration: Getting Worse Location: Reports: Back Quality: Reports: Sharp Severity: Moderate (By appearances) Improves with: Reports: None Worsens with: Reports: Other (Cough), Movement Context: Reports: Other (As above) Associated Symptoms: Reports: Confusion, Nausea/Vomiting, Shortness of Breath Treatments [employer]Y CH[employer]ER: Reports: Other (see below) (Nothing) - Related Data Allergies Allergy/AdvReac Type Severity Reaction Status Date / Time No Known Allergies Allergy Verified 10/18/19 21:18 Home Meds: Home Meds Levothyroxine [Synthroid] 100 mcg PO DAILY 09/19/17 [History] Lisinopril 10 mg PO DAILY 09/19/17 [History] Metoprolol Succinate 100 mg PO DAILY 09/19/17 [History] Simvastatin [Zocor] 40 mg PO ACDINNER 09/19/17 [History] Warfarin Sodium [Jantoven] 4 mg PO DAILY 09/19/17 [History] amLODIPine [Norvasc] 5 mg PO DAILY 09/19/17 [History] Albuterol/Ipratropium [DuoNeb 3.0-0.5 MG/3 ML] 3 ml NEB Q4H PRN #60 neb [Rx] Budesonide [Pulmicort] 0.5 mg IH Q4HR PRN 02/10/18 [History] Furosemide 40 mg PO BID 02/10/18 [History] Sertraline [Zoloft] 50 mg PO DAILY 02/10/18 [History] busPIRone [Buspar] 5 mg PO BID 02/10/18 [History] Cyclobenzaprine [Flexeril] 10 mg PO TID 10/18/19 [History] Hydrocodone/Acetaminophen [Hydrocodon-Acetaminophen 5-325] 1 tab PO Q4HR PRN [History] diazePAM [Valium] 5 mg PO QID PRN #16 tab 10/18/19 [Rx] Past Medical History HEENT History: Reports: Impaired Vision, Other (See Below) Other HEENT History: Wears glasses. 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 Neurological History: Reports: Other (See Below) Other Neuro History: Fractured vertebra. Psychiatric History: Reports: Anxiety, Depression Endocrine/Metabolic History: Reports: Hypothyroidism Other Endocrine/Metabolic History: Takes thyroid medication. Hematologic History: Reports: Anticoagulation Therapy Oncologic (Cancer) History: Reports: Non-Hodgkin's Lymphoma, Thyroid - Infectious Disease History Infectious Disease History: Reports: Chicken Pox, Mumps - Past Surgical History Cardiovascular Surgical History: Reports: Valve Replacement (Aortic valve) Musculoskeletal Surgical History: Reports: Other (See Below) Other Musculoskeletal Surgeries/Procedures:: States has hx of broken wrist when younger. Social & Family History - Tobacco Use Smoking Status *Q: Former Smoker (Last smoked about 2 weeks ago) - Caffeine Use Caffeine Use: Reports: Soda - Alcohol Use Alcohol Use History: No - Living Situation & Occupation Occupation: Disabled Social History Comment: Is here with his daughter. He arrives via EMS. ED ROS GENERAL - Review of Systems Review Of Systems: Unable To Obtain Reason Not Obtained: Secondary to the patient's altered mental status ED EXAM, GENERAL - Physical Exam Exam: See Below Exam Limited By: No Limitations General Appearance: Alert, WD/WN, Moderate Distress (to severe) Eye Exam: Bilateral Eye: EOMI, Normal Inspection, PERRL Ears: Normal External Exam Ear Exam: Bilateral Ear: Auricle Normal Nose: Normal Inspection, Normal Mucosa, No Blood Throat/Mouth: Normal Voice, No Airway Compromise Head: Atraumatic, Normocephalic Neck: Normal Inspection, Supple, Non-Tender, Full Range of Motion, Other (No stridor) Respiratory/Chest: Chest Non-Tender, Respiratory Distress, Wheezing (Bilaterally ), Accessory Muscle Use Cardiovascular: Normal Peripheral Pulses, Regular Rate, Rhythm, No Gallop, No JVD Peripheral Pulses: 2+: Radial (L), Radial (R) GI/Abdominal: Normal Bowel Sounds, Non-Tender, No Abnormal Bruit, Distended Rectal (Males) Exam: Normal Rectal Tone, Heme - Stool, Other (Brown stool that was Hemoccult negative) Back Exam: Normal Inspection, Full Range of Motion Extremities: Normal Range of Motion, Normal Capillary Refill Neurological: CN II-XII Intact, Other (Dazed. Initially was not able to verbally respond after Narcan is more verbally responsive) Psychiatric: Anxious Skin Exam: Warm, Cyanosis, Diaphoretic, Wound/Incision EKG INTERPRETATION EKG Date: 10/19/19 Time: 06:54 Rhythm: Other (Ventricular paced rhythm) Rate (Beats/Min): 102 Comparison: No Change (No change from EKG performed on 02/10/2018.) EKG Interpretation Comments: No other analysis secondary to paced rhythm. Course - Vital Signs Last Recorded V/S: Last Vital Signs Temp Pulse 100 10/19/19 05:58 Resp 25 H 10/19/19 05:58 BP 101/79 10/19/19 05:58 Pulse Ox 96 10/19/19 05:58 - Orders/Labs/Meds Orders: Active Orders 24 hr Category Date Time Status BIPAP Adult [RT BiPAP/CPAP] [] ASDIRECTED Care 10/19/19 07:22 Active EKG Documentation Completion [RC] ASDIRECTED Care 10/19/19 06:18 Active RT Aerosol Therapy [RC] ASDIRECTED Care 10/19/19 06:19 Active Chest 1V Frontal [CR] Stat Exams 10/19/19 06:15 Taken Piperacillin/Tazobactam [Zosyn] 3.375 gm Med 10/19/19 07:30 Active Sodium Chloride 0.9% [Normal Saline] 50 ml IV Q6H Sodium Chloride 0.9% [Normal Saline] 1,000 ml Med 10/19/19 08:30 Active IV ASDIRECTED Sodium Chloride 0.9% [Saline Flush] Med 10/19/19 06:15 Active 10 ml FLUSH ASDIRECTED PRN Peripheral IV Insertion Adult [OM.PC] Routine Oth 10/19/19 06:15 Ordered Peripheral IV Insertion Adult [OM.PC] Routine Oth 10/19/19 06:20 Ordered EKG 12 Lead [EK] Routine Ther 10/19/19 06:17 Ordered Medication Orders Piperacillin Sod/Tazobactam (Sod 3.375 gm/ Sodium Chloride) 50 mls @ 100 mls/ hr IV Q6H BRENDA Last Admin: 10/19/19 08:20 Dose: 100 mls/hr Sodium Chloride (Normal Saline) 1,000 mls @ 125 mls/hr IV ASDIRECTED BRENDA Sodium Chloride (Saline Flush) 10 ml FLUSH ASDIRECTED PRN PRN Reason: Keep Vein Open Last Admin: 10/19/19 06:10 Dose: 10 ml Labs: Laboratory Tests 10/19/19 10/19/19 10/19/19 Range/Units 06:30 06:30 06:30 WBC 28.3 H (4.5-12.0) X10-3/uL RBC 4.25 L (4.30-5.75) x10(6)uL Hgb 13.3 L (13.5-17.8) g/dL Hct 41.2 (30.0-51.3) % MCV 96.9 H (80-96) fL MCH 31.3 (27.7-33.6) pg MCHC 32.3 (32.2-35.4) g/dL RDW 13.3 (11.5-15.5) % Plt Count 499 H (125-369) X10(3)uL MPV 9.3 (7.4-10.4) fL Add Manual Diff Yes Neutrophils % (Manual) 70 (46-82) % Band Neutrophils % 11 H (0-6) % Lymphocytes % (Manual) 12 L (13-37) % Monocytes % (Manual) 5 (4-12) % Eosinophils % (Manual) 2 (0-5) % PT 64.8 H* (8.7-11.1) INR 6.01 H* (0.89-1.13) POC VBG pH (7.31-7.41) POC VBG pCO2 (41-51) mmHG POC VBG HCO3 (23-28) mmol/L POC VBG Total CO2 (24-29) mmol/L POC VBG Base Excess (-2-3) mmol/L Sodium 145 (135-145) mmol/L Potassium 4.7 (3.5-5.3) mmol/L Chloride 103 (100-110) mmol/L Carbon Dioxide 38 H (21-32) mmol/L BUN 32 H D (7-18) mg/dL Creatinine 2.6 H* (0.70-1.30) mg/dL Est Cr Clr Drug Dosing TNP Estimated GFR (MDRD) 25 L (>60) BUN/Creatinine Ratio 12.3 (9-20) Glucose 115 (80-116) mg/dL Calcium 8.9 (8.6-10.2) mg/dL Magnesium (1.8-2.5) mg/dL Total Bilirubin 0.3 (0.1-1.3) mg/dL AST 21 (5-25) IU/L ALT 20 (12-36) U/L Alkaline Phosphatase 96 (56-112) IU/L Troponin I (<0.017-0.056) ng/mL NT-Pro-B Natriuret Pep (<=125) pg/mL Total Protein 8.6 H (6.0-8.0) g/dL Albumin 4.2 (3.5-5.2) g/dL Globulin 4.4 g/dL Albumin/Globulin Ratio 1.0 10/19/19 10/19/19 10/19/19 Range/Units 06:30 06:30 07:12 WBC (4.5-12.0) X10-3/uL RBC (4.30-5.75) x10(6)uL Hgb (13.5-17.8) g/dL Hct (30.0-51.3) % MCV (80-96) fL MCH (27.7-33.6) pg MCHC (32.2-35.4) g/dL RDW (11.5-15.5) % Plt Count (125-369) X10(3)uL MPV (7.4-10.4) fL Add Manual Diff Neutrophils % (Manual) (46-82) % Band Neutrophils % (0-6) % Lymphocytes % (Manual) (13-37) % Monocytes % (Manual) (4-12) % Eosinophils % (Manual) (0-5) % PT (8.7-11.1) INR (0.89-1.13) POC VBG pH 7.11 L (7.31-7.41) POC VBG pCO2 129.9 H (41-51) mmHG POC VBG HCO3 41.5 H (23-28) mmol/L POC VBG Total CO2 45 H (24-29) mmol/L POC VBG Base Excess 12 H (-2-3) mmol/L Sodium (135-145) mmol/L Potassium (3.5-5.3) mmol/L Chloride (100-110) mmol/L Carbon Dioxide (21-32) mmol/L BUN (7-18) mg/dL Creatinine (0.70-1.30) mg/dL Est Cr Clr Drug Dosing Estimated GFR (MDRD) (>60) BUN/Creatinine Ratio (9-20) Glucose (80-116) mg/dL Calcium (8.6-10.2) mg/dL Magnesium 2.1 (1.8-2.5) mg/dL Total Bilirubin (0.1-1.3) mg/dL AST (5-25) IU/L ALT (12-36) U/L Alkaline Phosphatase (56-112) IU/L Troponin I < 0.017 L (<0.017-0.056) ng/mL NT-Pro-B Natriuret Pep 1078 H* (<=125) pg/mL Total Protein (6.0-8.0) g/dL Albumin (3.5-5.2) g/dL Globulin g/dL Albumin/Globulin Ratio 10/19/ Range/Units 08:36 WBC (4.5-12.0) X10-3/uL RBC (4.30-5.75) x10(6)uL Hgb (13.5-17.8) g/dL Hct (30.0-51.3) % MCV (80-96) fL MCH (27.7-33.6) pg MCHC (32.2-35.4) g/dL RDW (11.5-15.5) % Plt Count (125-369) X10(3)uL MPV (7.4-10.4) fL Add Manual Diff Neutrophils % (Manual) (46-82) % Band Neutrophils % (0-6) % Lymphocytes % (Manual) (13-37) % Monocytes % (Manual) (4-12) % Eosinophils % (Manual) (0-5) % PT (8.7-11.1) INR (0.89-1.13) POC VBG pH 7.15 L (7.31-7.41) POC VBG pCO2 113.5 H (41-51) mmHG POC VBG HCO3 39.8 H (23-28) mmol/L POC VBG Total CO2 43 H (24-29) mmol/L POC VBG Base Excess 11 H (-2-3) mmol/L Sodium (135-145) mmol/L Potassium (3.5-5.3) mmol/L Chloride (100-110) mmol/L Carbon Dioxide (21-32) mmol/L BUN (7-18) mg/dL Creatinine (0.70-1.30) mg/dL Est Cr Clr Drug Dosing Estimated GFR (MDRD) (>60) BUN/Creatinine Ratio (9-20) Glucose (80-116) mg/dL Calcium (8.6-10.2) mg/dL Magnesium (1.8-2.5) mg/dL Total Bilirubin (0.1-1.3) mg/dL AST (5-25) IU/L ALT (12-36) U/L Alkaline Phosphatase (56-112) IU/L Troponin I (<0.017-0.056) ng/mL NT-Pro-B Natriuret Pep (<=125) pg/mL Total Protein (6.0-8.0) g/dL Albumin (3.5-5.2) g/dL Globulin g/dL Albumin/Globulin Ratio Meds: Medications Generic Name Dose Route Start Last Admin Trade Name Freq PRN Reason Stop Dose Admin Piperacillin Sod/Tazobactam 50 mls @ 100 mls/hr 10/19/19 07:30 10/19/19 08:20 Sod 3.375 gm/ Sodium Chloride IV 100 mls/hr Q6H BRENDA Administration Sodium Chloride 1,000 mls @ 125 mls/hr 10/19/19 08:30 Normal Saline IV ASDIRECTED BRENDA Sodium Chloride 10 ml 10/19/19 06:15 10/19/19 06:10 Saline Flush FLUSH 10 ml ASDIRECTED PRN Administration Keep Vein Open Discontinued Medications Generic Name Dose Route Start Last Admin Trade Name Freq PRN Reason Stop Dose Admin Albuterol 2.5 mg 10/19/19 06:19 10/19/19 06:25 Proventil Neb Soln NEB 10/19/19 06:20 2.5 mg ONETIME ONE Administration Albuterol/Ipratropium 3 ml 10/19/19 06:19 10/19/19 06:25 Duoneb 3.0-0.5 Mg/3 Ml NEB 10/19/19 06:20 3 ml ONETIME ONE Administration Sodium Chloride 500 mls @ 999 mls/hr 10/19/19 07:25 10/19/19 07:29 Normal Saline IV 10/19/19 07:55 999 mls/hr .BOLUS ONE Administration Sodium Chloride 500 mls @ 999 mls/hr 10/19/19 08:28 10/19/19 08:32 Normal Saline IV 10/19/19 08:58 999 mls/hr .BOLUS ONE Administration Methylprednisolone Sodium Succinate 125 mg 10/19/19 07:25 10/19/19 08:31 Solu-Medrol IVPUSH 10/19/19 07:26 125 mg ONETIME ONE Administration Naloxone HCl Confirm 10/19/19 06:05 10/19/19 06:11 Narcan Administered 10/19/19 06:06 0.4 mg Dose Administration 0.4 mg .ROUTE .STK-MED ONE Naloxone HCl 0.4 mg 10/19/19 06:30 Narcan IVPUSH 10/19/19 06:31 ONETIME STA Pantoprazole Sodium 80 mg 10/19/19 07:28 10/19/19 08:32 Protonix Iv IVPUSH 10/19/19 07:29 80 mg .BOLUS ONE Administration - Radiology Interpretation Free Text/Narrative:: Portable chest x-ray shows left lingular infiltrate. - Re-Assessments/Exams Free Text/Narrative Re-Assessment/Exam: 10/19/19 07:23: Patient's blood gas shows pH 7.11 and a PCO2 of 130. I will place patient on BiPAP. His blood pressure is also systolic and I will give him a fluid bolus of normal saline at 500 mL 10/19/19 07:47: She does now on BiPAP he is much more awake and alert. He is appropriately verbally responsive. Blood pressure is 90 systolic and we are giving him a normal saline bolus. He is informed me that he would want intubation if his respiratory status deteriorated. He is a full code. The patient will need admission for BiPAP therapy and leave evasion if his respiratory status deteriorates, IV antibiotics, IV fluids close monitoring in an ICU setting which is not available at [facility]. The patient is followed through the [facility] system and would want me to discuss his case with the doctors at [facility] in [place]. 10/19/19 08:30: Patient remains awake and alert. His blood pressure is 98 systolic. I will continue with IV fluid resuscitation giving him another 500 mL bolus of normal saline and then normal saline at a of 125 mL per hour. His Hemoccult was negative. He has received Protonix 80 mg IV, IV Medrol 125 mg IV, DuoNeb/albuterol neb combination and Zosyn 3.375 g IV. I have discussed the patient's case with Dr. Bay, ED physician at [facility] in [place], and he has agreed to accept the patient in transfer. I have ordered another venous blood gas to reassess the patient's status. The patient will be transported via ambulance to [facility] for admission. The patient will need transport via ambulance with BiPAP capability. 10/19/19 08:44: Repeat venous blood gas shows a pH of 7.15 and a PCO2 of 113. He remains awake and alert. His blood pressure is in the 90-100 systolic range and he is getting another normal saline fluid bolus. The patient will be transferred via [facility] ambulance service with BiPAP continuing. The patient and his daughter are in agreement with this plan. 10/19/19 09:24: Blood pressure remains in the 90-100 systolic range. Fluid resuscitation with normal saline is ongoing. EMS has arrived rans with the patient to [facility] via ambulance. Departure - Departure Time of Disposition: 09:30 Disposition: DC/Tfer to Acute Hospital 02 Condition: Critical Clinical Impression: Acute respiratory failure with hypoxia and hypercapnia, Upper GI hemorrhage, Acute kidney injury, Supratherapeutic INR Aspiration pneumonia due to food (regurgitated) Qualifiers: Laterality: left Lung location: lower lobe of lung Qualified Code(s): J69.0 - Pneumonitis due to inhalation of food and vomit Hypotension Qualifiers: Hypotension type: hypotension due to hypovolemia Qualified Code(s): I95.89 - Other hypotension - Discharge Information Referrals: Lisa Villalpando, FIELD AUDITOR [Primary Care Provider] - Forms: ED Department Discharge Sepsis Event Note - Focused Exam Vital Signs: Vital Signs Pulse Resp BP Pulse Ox 10/19/19 05:58 100 25 H 101/79 96 Date Exam was Performed: 10/19/19 Time Exam was Performed: 09:23 - My Orders Last 24 Hours: My Active Orders 10/19/19 06:15 Chest 1V Frontal [CR] Stat Sodium Chloride 0.9% [Saline Flush] 10 ml FLUSH ASDIRECTED PRN Peripheral IV Insertion Adult [OM.PC] Routine 10/19/19 06:17 EKG 12 Lead [EK] Routine 10/19/19 06:18 EKG Documentation Completion [RC] ASDIRECTED 10/19/19 06:19 RT Aerosol Therapy [RC] ASDIRECTED 10/19/19 06:20 Peripheral IV Insertion Adult [OM.PC] Routine 10/19/19 07:22 BIPAP Adult [RT BiPAP/CPAP] [RC] ASDIRECTED 10/19/19 07:30 Piperacillin/Tazobactam [Zosyn] 3.375 gm Sodium Chloride 0.9% [Normal Saline] 50 ml IV Q6H 10/19/19 08:30 Sodium Chloride 0.9% [Normal Saline] 1,000 ml IV ASDIRECTED - Assessment/Plan Last 24 Hours: My Active Orders 10/19/19 06:15 Chest 1V Frontal [CR] Stat Sodium Chloride 0.9% [Saline Flush] 10 ml FLUSH ASDIRECTED PRN Peripheral IV Insertion Adult [OM.PC] Routine 10/19/19 06:17 EKG 12 Lead [EK] Routine 10/19/19 06:18 EKG Documentation Completion [RC] ASDIRECTED 10/19/19 06:19 RT Aerosol Therapy [RC] ASDIRECTED 10/19/19 06:20 Peripheral IV Insertion Adult [OM.PC] Routine 10/19/19 07:22 BIPAP Adult [RT BiPAP/CPAP] [RC] ASDIRECTED 10/19/19 07:30 Piperacillin/Tazobactam [Zosyn] 3.375 gm Sodium Chloride 0.9% [Normal Saline] 50 ml IV Q6H 10/19/19 08:30 Sodium Chloride 0.9% [Normal Saline] 1,000 ml IV ASDIRECTED
[2019-10-19] MEDS ORDERED: Naloxone 0.4 MG/ML SDV IVPUSH STA (06:30)
[2019-10-19] MEDS ORDERED: Sodium Chloride 0.9% 500 ML IV ONE ×2 (07:25→08:28)
[2019-10-19] MEDS ORDERED: methylPREDNISolone Sodium Succinate 125 MG/2 ML SDV IVPUSH ONE (07:25)
[2019-10-19] MEDS ORDERED: Pantoprazole 40 MG Vial IVPUSH ONE (07:28)
[2019-10-19] MEDS ORDERED: Piperacillin/Tazobactam 3.375 GM in Sodium Chloride 0.9% 50 ML IV SCH (07:30)
[2019-10-19] MEDS ORDERED: Sodium Chloride 0.9% 1,000 ML IV SCH (08:30)
--- NOTE | 2019-10-21 09:54 | CR ---
INDICATION: Shortness of breath, low oxygen sats. CHEST, ONE VIEW: Portable AP upright view of the chest 10/19/19 was compared with 09/18/17 and revealed bipolar pacemaker leads to be unchanged in position with post median sternotomy change again noted. The heart did not appear grossly enlarged. The aorta is slightly tortuous with minimal calcification in the arch suggested. Overlying EKG leads and snaps were noted. A definite active infiltrate or effusion was not identified. Lungs appear to be somewhat hyperaerated. IMPRESSION: No acute process. MTDD
== END 2019-10-19 09:45 ==
LOC: FB.ED 05:58
DX: J96.01 Acute respiratory failure with hypoxia (principal); J96.02 Acute respiratory failure with hypercapnia; K92.2 Gastrointestinal hemorrhage, unspecified; N17.9 Acute kidney failure, unspecified; R79.1 Abnormal coagulation profile; J69.0 Pneumonitis due to inhalation of food and vomit; I95.89 Other hypotension; I10 Essential (primary) hypertension; E03.9 Hypothyroidism, unspecified; F41.9 Anxiety disorder, unspecified; F32.9 Major depressive disorder, single episode, unspecified; Z79.899 Other long term (current) drug therapy; Z79.890 Hormone replacement therapy; Z79.01 Long term (current) use of anticoagulants; Z79.51 Long term (current) use of inhaled steroids; Z95.1 Presence of aortocoronary bypass graft; Z95.2 Presence of prosthetic heart valve; Z95.0 Presence of cardiac pacemaker; Z95.5 Presence of coronary angioplasty implant and graft; Z87.891 Personal history of nicotine dependence
CPT/HCPCS: 36415; 71045; 80053; 82272; 82803; 83735; 83880; 84484; 85025; 85610; 93005; 94640; 94660; 96361; 96365; 96375; 99285-25; C9113; J2310; J2543; J2930; J7030; J7040; J7050; J7620-GY

== ENCOUNTER 2020-12-09 17:05 | Emergency (ER) | payer BC ==
[2020-12-09] MEDS ORDERED: Azithromycin 250 MG Tab PO ONE (17:06)
[2020-12-09] MEDS ORDERED: traMADol 50 MG Tab PO ONE (17:06)
[2020-12-09] MEDS: Morphine 2 MG/ML SYRINGE IVPUSH STA (17:31)
[2020-12-09] MEDS: Cyclobenzaprine 10 MG Tab PO STA (17:33)
[2020-12-09] MEDS: Diltiazem 25 MG/5 ML SDV IVPUSH STA ×2 (17:33→17:50)
[2020-12-09] MEDS: Ketorolac 30 MG/ML SDV IVPUSH STA (17:33)
[2020-12-09] MEDS: Sodium Chloride 0.9% 1,000 ML IV SCH (17:52)
[2020-12-09] MEDS: Sodium Chloride 0.9% 10 ML Syringe FLUSH PRN (17:55)
[2020-12-09] MEDS ORDERED: Metoprolol Tartrate 5 MG in Sodium Chloride 0.9% 50 ML IV STA (17:56)
[2020-12-09] MEDS: Metoprolol Tartrate 5 MG/5 ML SDV IVPUSH STA (18:03)
[2020-12-09] MEDS: Metoprolol Tartrate 100 MG Tab PO STA (18:14)
--- NOTE | 2020-12-09 18:57 | EDM.PDOC ---
ED HPI GENERAL MEDICAL PROBLEM - General Chief Complaint: Cardiovascular Problem Stated Complaint: low back pain,palpitations Time Seen by Provider: 12/09/20 17:10 Source of Information: Reports: Patient, EMS, Family History Limitations: Reports: No Limitations - History of Present Illness INITIAL COMMENTS - FREE TEXT/NARRATIVE: Patient presented to the ED because of low back pain and palpitations. He jus had a bone biopsy today and apparently he was found to be tachycardic with HR of 140's. There is no associated chest pain, dyspnea, nausea, vomiting or dizziness. He has a history of chronic afib on anticoagulation and rate control with metoprolol. Lower Back Pain Score (Numeric/FACES): 10 - Related Data Allergies Allergy/AdvReac Type Severity Reaction Status Date / Time No Known Allergies Allergy Verified 10/18/19 21:18 Home Meds: Home Meds Levothyroxine [Synthroid] 100 mcg PO DAILY 09/19/17 [History] Lisinopril 10 mg PO DAILY 09/19/17 [History] Metoprolol Succinate 100 mg PO DAILY 09/19/17 [History] Simvastatin [Zocor] 40 mg PO ACDINNER 09/19/17 [History] Warfarin Sodium [Jantoven] 4 mg PO DAILY 09/19/17 [History] amLODIPine [Norvasc] 5 mg PO DAILY 09/19/17 [History] Albuterol/Ipratropium [DuoNeb 3.0-0.5 MG/3 ML] 3 ml NEB Q4H PRN #60 neb 09/20/17 [Rx] Budesonide [Pulmicort] 0.5 mg IH Q4HR PRN 02/10/18 [History] Furosemide 40 mg PO BID 02/10/18 [History] Sertraline [Zoloft] 50 mg PO DAILY 02/10/18 [History] busPIRone [Buspar] 5 mg PO BID 02/10/18 [History] Cyclobenzaprine [Flexeril] 10 mg PO TID 10/18/19 [History] Hydrocodone/Acetaminophen [Hydrocodon-Acetaminophen 5-325] 1 tab PO Q4HR PRN 10/18/19 [History] diazePAM [Valium] 5 mg PO QID PRN #16 tab 10/18/19 [Rx] Past Medical History HEENT History: Reports: Impaired Vision, Other (See Below) Other HEENT History: Wears glasses. 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 Neurological History: Reports: Other (See Below) Other Neuro History: Fractured vertebra. Psychiatric History: Reports: Anxiety, Depression Endocrine/Metabolic History: Reports: Hypothyroidism Other Endocrine/Metabolic History: Takes thyroid medication. Hematologic History: Reports: Anticoagulation Therapy Oncologic (Cancer) History: Reports: Non-Hodgkin's Lymphoma, Thyroid - Infectious Disease History Infectious Disease History: Reports: Chicken Pox, Mumps - Past Surgical History Cardiovascular Surgical History: Reports: Valve Replacement (Aortic valve) Musculoskeletal Surgical History: Reports: Other (See Below) Other Musculoskeletal Surgeries/Procedures:: States has hx of broken wrist when younger. Social & Family History - Family History Family Medical History: No Pertinent Family History - Caffeine Use Caffeine Use: Reports: Soda - Living Situation & Occupation Occupation: Disabled ED ROS GENERAL - Review of Systems Review Of Systems: See Below Constitutional: Reports: No Symptoms HEENT: Reports: No Symptoms Respiratory: Reports: No Symptoms Cardiovascular: Reports: Palpitations Endocrine: Reports: No Symptoms GI/Abdominal: Reports: No Symptoms Musculoskeletal: Reports: Back Pain, Muscle Pain Skin: Reports: No Symptoms Neurological: Reports: No Symptoms Psychiatric: Reports: No Symptoms Hematologic/Lymphatic: Reports: No Symptoms Immunologic: Reports: No Symptoms ED EXAM, GENERAL - Physical Exam Exam: See Below Exam Limited By: No Limitations General Appearance: Alert, No Apparent Distress Eye Exam: Bilateral Eye: PERRL Ears: Normal External Exam, Normal Canal Nose: Normal Inspection, Normal Mucosa Throat/Mouth: Normal Inspection, Normal Lips Head: Atraumatic, Normocephalic Neck: Normal Inspection, Supple Respiratory/Chest: No Respiratory Distress, Lungs Clear, Normal Breath Sounds Cardiovascular: Normal Peripheral Pulses, Regular Rate, Rhythm, No Edema, No Gallop, No JVD, No Murmur GI/Abdominal: Normal Bowel Sounds, Soft, Non-Tender Back Exam: Normal Inspection, Muscle Spasm, Vertebral Tenderness Neurological: Alert, Oriented, CN II-XII Intact, Normal Cognition, Normal Gait, Normal Reflexes, No Motor/Sensory Deficits Psychiatric: Normal Affect Skin Exam: Warm Course - Vital Signs Text/Narrative:: Lab/EKG/CXR result wass discussed with patient Morphine 2 mg IV x1 Toradol 30 mg IV x1 Flexeril 10 mg IV x1 Cardizem 15 mg IV x1 Cardizem 10 mg IV x1 Metoprol succinate 100 mg po x1 Lopressor 5 mg IV x1 Last Recorded V/S: Last Vital Signs Temp 36.7 C 12/09/20 17:05 Pulse 139 H 12/09/20 18:14 Resp 26 H 12/09/20 17:05 BP 114/81 12/09/20 18:14 Pulse Ox 96 12/09/20 17:05 - Orders/Labs/Meds Orders: Active Orders 24 hr Category Date Time Status Chest 1V Frontal [CR] Stat Exams 12/09/20 18:48 Taken Saline Lock Insert [OM.PC] Routine Oth 12/09/20 17:09 Ordered EKG 12 Lead [EK] Routine Ther 12/09/20 17:09 Ordered Labs: Laboratory Tests 12/09/20 12/09/20 12/09/20 Range/Units 17:15 17:15 17:15 WBC 17.3 H (3.2-10.1) x10-3/uL RBC 4.66 (3.90-5.90) x10(6)uL Hgb 14.1 (12.9-17.7) g/dL Hct 44.8 (38.3-50.1) % MCV 96.2 (80.8-98.7) fL MCH 30.3 (27.0-33.3) pg MCHC 31.6 (28.7-35.3) g/dL RDW 13.8 (12.4-15.0) % Plt Count 430 (117-477) x10(3)uL MPV 10.2 (6.7-11.0) fL Add Manual Diff Yes Neutrophils % (Manual) 72 (46-82) % Band Neutrophils % 1 (0-6) % Lymphocytes % (Manual) 20 (13-37) % Monocytes % (Manual) 5 (4-12) % Eosinophils % (Manual) 2 (0-5) % PT 19.3 H (9.0-11.1) sec INR 1.86 H (1.00-1.24) Sodium 140 (135-145) mmol/L Potassium 3.9 (3.5-5.3) mmol/L Chloride 96 L D (100-110) mmol/L Carbon Dioxide 39 H (21-32) mmol/L BUN 25 H (7-18) mg/dL Creatinine 1.6 H (0.70-1.30) mg/dL Est Cr Clr Drug Dosing TNP Estimated GFR (MDRD) 44 L (>60) BUN/Creatinine Ratio 15.6 (9-20) Glucose 118 H (80-116) mg/dL Calcium 9.3 (8.6-10.2) mg/dL Magnesium 2.1 (1.8-2.5) mg/dL Total Bilirubin 0.7 (0.1-1.3) mg/dL AST 24 D (5-25) IU/L ALT 26 D (12-36) U/L Alkaline Phosphatase 168 H (56-112) IU/L Troponin I (4.0-60.3) pg/mL NT-Pro-B Natriuret Pep (<=125) pg/mL Total Protein 8.4 H (6.0-8.0) g/dL Albumin 3.7 (3.2-4.6) g/dL Globulin 4.7 g/dL Albumin/Globulin Ratio 0.8 03/17/21 Range/Units 17:15 WBC (3.2-10.1) x10-3/uL RBC (3.90-5.90) x10(6)uL Hgb (12.9-17.7) g/dL Hct (38.3-50.1) % MCV (80.8-98.7) fL MCH (27.0-33.3) pg MCHC (28.7-35.3) g/dL RDW (12.4-15.0) % Plt Count (117-477) x10(3)uL MPV (6.7-11.0) fL Add Manual Diff Neutrophils % (Manual) (46-82) % Band Neutrophils % (0-6) % Lymphocytes % (Manual) (13-37) % Monocytes % (Manual) (4-12) % Eosinophils % (Manual) (0-5) % PT (9.0-11.1) sec INR (1.00-1.24) Sodium (135-145) mmol/L Potassium (3.5-5.3) mmol/L Chloride (100-110) mmol/L Carbon Dioxide (21-32) mmol/L BUN (7-18) mg/dL Creatinine (0.70-1.30) mg/dL Est Cr Clr Drug Dosing Estimated GFR (MDRD) (>60) BUN/Creatinine Ratio (9-20) Glucose (80-116) mg/dL Calcium (8.6-10.2) mg/dL Magnesium (1.8-2.5) mg/dL Total Bilirubin (0.1-1.3) mg/dL AST (5-25) IU/L ALT (12-36) U/L Alkaline Phosphatase (56-112) IU/L Troponin I 21.1 (4.0-60.3) pg/mL NT-Pro-B Natriuret Pep 1062 H* (<=125) pg/mL Total Protein (6.0-8.0) g/dL Albumin (3.2-4.6) g/dL Globulin g/dL Albumin/Globulin Ratio Meds: Medications Discontinued Medications Generic Name Dose Route Start Last Admin Trade Name Freq PRN Reason Stop Dose Admin Cyclobenzaprine HCl 10 mg 12/09/20 17:25 12/09/20 17:33 Cyclobenzaprine 10 Mg Tab PO 12/09/20 17:26 10 mg NOW STA Administration Diltiazem HCl 15 mg 12/09/20 17:22 12/09/20 17:33 Diltiazem 25 Mg/5 Ml Sdv IVPUSH 12/09/20 17:23 15 mg NOW STA Administration Diltiazem HCl 10 mg 12/09/20 17:45 12/09/20 17:50 Diltiazem 25 Mg/5 Ml Sdv IVPUSH 12/09/20 17:46 10 mg NOW STA Administration Sodium Chloride 1,000 mls @ 999 mls/hr 12/09/20 18:00 12/09/20 17:52 Normal Saline IV 999 mls/hr ASDIRECTED BRENDA Administration Metoprolol Tartrate 5 mg/ 55 mls @ 100 mls/hr 12/09/20 17:56 Sodium Chloride IV 12/09/20 18:28 NOW STA Ketorolac Tromethamine 30 mg 12/09/20 17:22 12/09/20 17:33 Ketorolac 30 Mg/Ml Sdv IVPUSH 12/09/20 17:23 30 mg NOW STA Administration Metoprolol Tartrate 5 mg 12/09/20 17:59 12/09/20 18:03 Metoprolol Tartrate 5 Mg/5 Ml Sdv IVPUSH 12/09/20 18:00 5 mg NOW STA Administration Metoprolol Tartrate 100 mg 12/09/20 18:10 12/09/20 18:14 Metoprolol Tartrate 100 Mg Tab PO 12/09/20 18:11 100 mg NOW STA Administration Morphine Sulfate 2 mg 12/09/20 17:22 12/09/20 17:31 Morphine 2 Mg/Ml Syringe IVPUSH 12/09/20 17:23 2 mg NOW STA Administration Sodium Chloride 10 ml 12/09/20 17:09 12/09/20 17:55 Sodium Chloride 0.9% 10 Ml Syringe FLUSH 10 ml ASDIRECTED PRN Administration Keep Vein Open Departure - Departure Time of Disposition: 18:55 Disposition: Home, Self-Care 01 Condition: Good Clinical Impression: Chronic a-fib, Chronic low back pain, Leucocytosis COPD (chronic obstructive pulmonary disease) Qualifiers: COPD type: COPD with acute exacerbation Qualified Code(s): J44.1 - Chronic obstructive pulmonary disease with (acute) exacerbation Instructions: Chronic Obstructive Pulmonary Disease, Chronic Back Pain, Easy -to-Read, Atrial Fibrillation, [id number] Referrals: Lisa Villalpando [employer] H[employer]ESS [Primary Care Provider] - Forms: ED Department Discharge Additional Instructions: Please read discharge instructions on Chronic Afib and Chronic low back pain Take tramadol 50 mg with tylenol 100 mg every 8 hours as needed for pain Z-terra as directed Keep your appointment to see your doctor tomorrow - My Orders Last 24 Hours: My Active Orders 12/09/20 17:09 Saline Lock Insert [OM.PC] Routine EKG 12 Lead [EK] Routine 12/09/20 18:48 Chest 1V Frontal [CR] Stat - Assessment/Plan Last 24 Hours: My Active Orders 12/09/20 17:09 Saline Lock Insert [OM.PC] Routine EKG 12 Lead [EK] Routine 12/09/20 18:48 Chest 1V Frontal [CR] Stat
--- NOTE | 2020-12-10 10:20 | CR ---
INDICATION: COPD, elevated white blood count. CHEST ONE VIEW: AP upright portable view of the chest was obtained 12/09/20 and compared with 10/19/19 and 02/10/18. The heart did not appear grossly enlarged. Bipolar pacemakers leads wee unchanged in position. Median sternotomy is noted. Overlying EKG leads are noted. Pulmonary markings are similar to the previous study without a definite active infiltrate or effusion. There is a relatively poor inspiration emphasizing markings somewhat with a linear density at the right lung base which may represent fibrosis of possibly minimal linear atelectasis. IMPRESSION: Overall fairly stable appearance of the chest with no definite acute process. Fibrosis versus some minimal linear atelectatic strand at the right lung base is suggested. MTDD
== END 2020-12-09 19:20 | disposition home or self-care (01) ==
LOC: FB.ED 17:05
DX: J44.1 Chronic obstructive pulmonary disease with (acute) exacerbation (principal); I48.20 Chronic atrial fibrillation, unspecified; D72.829 Elevated white blood cell count, unspecified; M54.5 Low back pain; G89.29 Other chronic pain; I10 Essential (primary) hypertension; E03.9 Hypothyroidism, unspecified; Z79.01 Long term (current) use of anticoagulants; Z79.899 Other long term (current) drug therapy
CPT/HCPCS: 36415; 71045; 80053; 83735; 83880; 84484; 85025; 85610; 93005; 96374; 96375; 99285; A9270; J1885; J2270; J3490; J7030

== ENCOUNTER 2020-12-28 09:08 | Emergency (ER) | payer BC ==
[2020-12-28] MEDS ORDERED: Albuterol/Ipratropium 3.0-0.5 MG/3 ML Neb Soln NEB ONE (09:34)
[2020-12-28] MEDS ORDERED: predniSONE 20 MG Tab PO ONE (09:52)
--- NOTE | 2020-12-28 09:59 | EDM.PDOC ---
ED HPI GENERAL MEDICAL PROBLEM - General Chief Complaint: Respiratory Problem Stated Complaint: COVID test,cough Time Seen by Provider: 12/28/20 09:35 Source of Information: Reports: Patient History Limitations: Reports: No Limitations - History of Present Illness INITIAL COMMENTS - FREE TEXT/NARRATIVE: Patient presented to the ED because of increasing cough/dyspnea although his oxygen saturation is 96 on RA. There is no fever,chills and his cough is mostly non-productive. There is no chest pain, palpitations, or diaphoresis. He said he also wants to be tested for Covid because he has an upcoming surgery 2 weeks from now. Back Pain Score (Numeric/FACES): 8 - Related Data Allergies Allergy/AdvReac Type Severity Reaction Status Date / Time No Known Allergies Allergy Verified 10/18/19 21:18 Home Meds: Home Meds Levothyroxine [Synthroid] 100 mcg PO DAILY 09/19/17 [History] Lisinopril 10 mg PO DAILY 09/19/17 [History] Metoprolol Succinate 100 mg PO DAILY 09/19/17 [History] Simvastatin [Zocor] 40 mg PO ACDINNER 09/19/17 [History] Warfarin Sodium [Jantoven] 4 mg PO DAILY 09/19/17 [History] amLODIPine [Norvasc] 5 mg PO DAILY 09/19/17 [History] Albuterol/Ipratropium [DuoNeb 3.0-0.5 MG/3 ML] 3 ml NEB Q4H PRN #60 neb 09/20/17 [Rx] Budesonide [Pulmicort] 0.5 mg IH Q4HR PRN 02/10/18 [History] Furosemide 40 mg PO BID 02/10/18 [History] Sertraline [Zoloft] 50 mg PO DAILY 02/10/18 [History] busPIRone [Buspar] 5 mg PO BID 02/10/18 [History] Cyclobenzaprine [Flexeril] 10 mg PO TID 10/18/19 [History] Hydrocodone/Acetaminophen [Hydrocodon-Acetaminophen 5-325] 1 tab PO Q4HR PRN 10/18/19 [History] diazePAM [Valium] 5 mg PO QID PRN #16 tab 10/18/19 [Rx] Azithromycin [Zithromax] 250 mg PO DAILY #6 tablet 12/28/20 [Rx] predniSONE [Prednisone] 40 mg PO DAILY #10 tablet 12/28/20 [Rx] Past Medical History HEENT History: Reports: Impaired Vision, Other (See Below) Other HEENT History: Wears glasses. 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 Neurological History: Reports: Other (See Below) Other Neuro History: Fractured vertebra. Psychiatric History: Reports: Anxiety, Depression Endocrine/Metabolic History: Reports: Hypothyroidism Other Endocrine/Metabolic History: Takes thyroid medication. Hematologic History: Reports: Anticoagulation Therapy Oncologic (Cancer) History: Reports: Non-Hodgkin's Lymphoma, Thyroid - Infectious Disease History Infectious Disease History: Reports: Chicken Pox, Mumps - Past Surgical History Cardiovascular Surgical History: Reports: Valve Replacement (Aortic valve) Musculoskeletal Surgical History: Reports: Other (See Below) Other Musculoskeletal Surgeries/Procedures:: States has hx of broken wrist when younger. Social & Family History - Family History Family Medical History: No Pertinent Family History - Tobacco Use Tobacco Use Status *Q: Unknown Ever Used Tobacco - Caffeine Use Caffeine Use: Reports: Soda - Recreational Drug Use Recreational Drug Use: No - Living Situation & Occupation Occupation: Disabled ED ROS GENERAL - Review of Systems Review Of Systems: See Below Constitutional: Reports: No Symptoms HEENT: Reports: No Symptoms Respiratory: Reports: Shortness of Breath, Cough Cardiovascular: Reports: No Symptoms Endocrine: Reports: No Symptoms GI/Abdominal: Reports: No Symptoms : Reports: No Symptoms Musculoskeletal: Reports: No Symptoms Skin: Reports: No Symptoms Neurological: Reports: No Symptoms Psychiatric: Reports: No Symptoms Hematologic/Lymphatic: Reports: No Symptoms ED EXAM, GENERAL - Physical Exam Exam: See Below Exam Limited By: No Limitations General Appearance: Alert, No Apparent Distress Ears: Normal External Exam, Normal Canal Nose: Normal Inspection, Normal Mucosa, No Blood Throat/Mouth: Normal Inspection Head: Atraumatic, Normocephalic Neck: Normal Inspection Respiratory/Chest: No Respiratory Distress, Normal Breath Sounds, Rhonchi, Wheezing Cardiovascular: Normal Peripheral Pulses, Regular Rate, Rhythm, No Edema, No Ga llop, No JVD, No Murmur GI/Abdominal: Normal Bowel Sounds, Soft, Non-Tender, No Organomegaly Back Exam: Normal Inspection, Full Range of Motion Extremities: Normal Inspection, Normal Range of Motion, Non-Tender, No Pedal Edema, Normal Capillary Refill Neurological: Alert, Oriented, CN II-XII Intact, Normal Cognition, Normal Gait, Normal Reflexes, No Motor/Sensory Deficits Course - Vital Signs Text/Narrative:: CXR-see result Duoneb x1 Prednisone 40 mg po x1 Last Recorded V/S: Last Vital Signs Temp 36.8 C 12/28/20 09:33 Pulse 59 L 12/28/20 10:16 Resp 14 12/28/20 10:16 BP 120/70 12/28/20 10:16 Pulse Ox 98 12/28/20 10:16 - Orders/Labs/Meds Meds: Medications Discontinued Medications Generic Name Dose Route Start Last Admin Trade Name Tadeo PRN Reason Stop Dose Admin Albuterol/Ipratropium 3 ml 12/28/20 09:34 12/28/20 09:43 Albuterol/Ipratropium 3.0-0.5 Mg/3 Ml Neb Soln NEB 12/28/20 09:35 3 ml ONETIME ONE Administration Prednisone 40 mg 12/28/20 09:52 12/28/20 09:58 Prednisone 20 Mg Tab PO 12/28/20 09:53 40 mg ONETIME ONE Administration Departure - Departure Time of Disposition: 10:20 Disposition: Home, Self-Care 01 Condition: Good Clinical Impression: COPD (chronic obstructive pulmonary disease) - Discharge Information Prescriptions: predniSONE [Prednisone] 40 mg PO DAILY #10 tablet Azithromycin [Zithromax] 250 mg PO DAILY #6 tablet Instructions: Chronic Obstructive Pulmonary Disease Exacerbation, [id number] Referrals: Lisa Villalpando [employer] SECRETARY [Primary Care Provider] - Forms: ED Department Discharge Additional Instructions: Please read discharge instructions on COPD exacerbation Prednisone 40 mg daily for 5 days starting tomorrow Z-terra as directed Follow up as needed Sepsis Event Note (ED) - Evaluation Sepsis Screening Result: No Definite Risk - Focused Exam Vital Signs: Vital Signs Temp Pulse Resp BP Pulse Ox 12/28/20 10:16 59 L 14 120/70 98 12/28/20 09:45 59 L 12/28/20 09:33 36.8 C 60 16 136/61 96
--- NOTE | 2020-12-28 10:22 | CR ---
INDICATION: Cough, dyspnea. CHEST ONE VIEW: AP upright view of the chest was obtained portable 12/28/20 and compared with 12/09/20 and 10/09/19. The heart did not appear grossly enlarged. Post median sternotomy change is noted. Bipolar pacemaker leads are noted with the ventricular lead tip in the area of the apex of the right ventricle. Pulmonary vasculature appears to be somewhat prominent raising question of fluid overload or other cause of pulmonary vascular congestion. The possibility of acute myocardial event would be a consideration additionally. No consolidating pneumonia or effusion was seen. Somewhat heavy markings at the lung bases most likely are fibrotic in nature, but may be slightly increased raising question of minimal patchy pneumonia additionally, as well as the upper middle lung field on the right. Diaphragm leaves appear somewhat flattened with hyperaeration raising question of COPD. IMPRESSION: 1. Post median sternotomy with bipolar pacemaker leads, apparently the ventricular lead is in different position than on the previous study at the apex of the right ventricle. 2. Possibility of pulmonary vascular congestion is suggested, the heart did not appear enlarged to strongly suggest CHF raising question of additional possible etiologies for pulmonary vascular congestion. 3. COPD. 4. Probable pulmonary fibrosis with difficulty in excluding patchy bronchopneumonia, especially at the lung bases and in the mid lung field on the right. MTDD
== END 2020-12-28 10:22 | disposition home or self-care (01) ==
LOC: FB.ED 09:08
DX: J44.9 Chronic obstructive pulmonary disease, unspecified (principal); I10 Essential (primary) hypertension; E03.9 Hypothyroidism, unspecified; Z79.01 Long term (current) use of anticoagulants; Z79.899 Other long term (current) drug therapy
CPT/HCPCS: 71045; 94640; 99282; 99285-25; J7512; J7620-GY